=== PATIENT | female | born 1945 | race Two or more races ===

== ENCOUNTER 2020-08-30 14:40 | Outpatient (REF) | payer MEDICARE, SELFPAY ==
--- NOTE | 2020-08-30 | US_ITS ---
EXAMINATION: US THYROID CLINICAL INFORMATION: Thyroid nodule. COMPARISON: Ultrasound soft tissue head/neck thyroid dated 09/11/2019 and 09/01/2018. TECHNIQUE: Linear transducer hicks-scale and color Doppler examination with attention to the region of the thyroid. FINDINGS: SIZE: Measurements of the thyroid lobes and nodules are given in sagittal, anteroposterior and transverse dimensions respectively. Right Thyroid Lobe: 3.5 x 1.1 x 1.1 cm, volume 2.2 mL. Previously 3.8 x 1.1 x 1.4 cm, volume 3.1 mL. Parenchyma: The gland echotexture is heterogeneous. Thyroid vascularity is normal. Left Thyroid Lobe: 3.8 x 0.7 x 1.2 cm, volume 1.7 mL. Previously 3.9 x 0.6 x 1.5 cm, volume 1.9 mL. Parenchyma: The gland echotexture is homogeneous. Thyroid vascularity is normal. Isthmus: 0.2 cm in maximum AP dimension. Previously 0.2 cm. RIGHT THYROID LOBE: No nodules. ISTHMUS: No nodules. LEFT THYROID LOBE: No nodules. NODES: No lymphadenopathy is seen in the tissue surrounding the thyroid gland. IMPRESSION: The thyroid gland is normal in size. No discrete nodule or mass is seen on the current examination. The previously described area likely reflects a subtle area of heterogeneity rather than a focal nodule.
[2020-08-30 16:35] LABS: Alanine Aminotransferase 24 U/L (0-31); Albumin Level 4.3 g/dL (3.5-5.0); Alkaline Phosphatase 82 U/L (39-117); Anion Gap 11 (12-20); Aspartate Amino Transferase 22 U/L (5-31); Bilirubin Total < 0.2 mg/dL (0.0-1.0); Blood Urea Nitrogen 32 mg/dL (9-16); Calcium 9.2 mg/dL (8.4-10.2); Carbon Dioxide 32 mmol/L (22-29); Chloride 103 mmol/L (96-108); Estimated Glomerular Filt Rate > 60; Glucose Random 100 mg/dL (60-115); Potassium 4.6 mmol/l (3.3-5.1); Sodium 141 mmol/L (135-145); Total Protein 6.6 g/dL (6.5-8.0)
[2020-09-02 22:22] LABS: Calcium (PTHI) 9.4 mg/dL (8.6-10.4); PTHI 55 pg/mL (14-64)
== END 2020-08-30 14:41 | disposition home or self-care (01) ==
LOC: HO.US 14:40
PROVIDERS: PCP Internal Medicine; Visit Provider Internal Medicine
DX: E04.1 Nontoxic single thyroid nodule (principal); M81.0 Age-related osteoporosis without current pathological fracture; E55.9 Vitamin D deficiency, unspecified
CPT/HCPCS: 76536; 80053; 82306; 83970; 84443

== ENCOUNTER → 2020-09-09 12:03 | Outpatient (BNVA) | payer MEDICARE, SELFPAY | PROVIDERS: PCP Internal Medicine; Referring Provider Internal Medicine; Visit Provider Internal Medicine | DX: M81.0 Age-related osteoporosis without current pathological fracture (principal); E04.1 Nontoxic single thyroid nodule; E55.9 Vitamin D deficiency, unspecified | CPT/HCPCS: 99214; Q3014 ==

== ENCOUNTER → 2020-12-09 10:45 | Outpatient (BNVA) | payer MEDICARE, SELFPAY | PROVIDERS: PCP Internal Medicine; Referring Provider Internal Medicine; Visit Provider Internal Medicine | DX: M81.0 Age-related osteoporosis without current pathological fracture (principal); E04.1 Nontoxic single thyroid nodule; E55.9 Vitamin D deficiency, unspecified | CPT/HCPCS: Q3014 ==

== ENCOUNTER → 2021-03-10 09:28 | Outpatient (BNVA) | payer MEDICARE, SELFPAY | PROVIDERS: PCP Internal Medicine; Visit Provider Internal Medicine | DX: Z13.89 Encounter for screening for other disorder (principal) | CPT/HCPCS: Q3014 ==

== ENCOUNTER → 2021-06-09 11:47 | Outpatient (BNVA) | payer MEDICARE, SELFPAY | PROVIDERS: PCP Internal Medicine; Visit Provider Internal Medicine | DX: E04.1 Nontoxic single thyroid nodule (principal) ==

== ENCOUNTER → 2021-07-02 09:42 | Outpatient (BNVA) | payer MEDICARE, SELFPAY | PROVIDERS: PCP Internal Medicine; Visit Provider Internal Medicine | DX: E04.1 Nontoxic single thyroid nodule (principal); M81.0 Age-related osteoporosis without current pathological fracture; E55.9 Vitamin D deficiency, unspecified | CPT/HCPCS: 99212 ==

== ENCOUNTER 2021-07-26 07:22 | Outpatient (REF) | payer MEDICARE, SELFPAY ==
[2021-07-26 08:46] LABS: Alanine Aminotransferase 18 U/L (0-31); Albumin Level 4.2 g/dL (3.5-5.0); Alkaline Phosphatase 78 U/L (39-117); Anion Gap 12 (12-20); Aspartate Amino Transferase 22 U/L (5-31); Bilirubin Total 0.2 mg/dL (0.0-1.0); Blood Urea Nitrogen 20 mg/dL (9-16); Calcium 9.6 mg/dL (8.4-10.2); Carbon Dioxide 29 mmol/L (22-29); Chloride 104 mmol/L (96-108); Estimated Glomerular Filt Rate > 60; Glucose Random 97 mg/dL (60-115); Phosphorus 3.8 mg/dL (2.7-4.5); Potassium 4.5 mmol/L (3.3-5.1); Sodium 140 mmol/L (135-145); Total Protein 6.3 g/dL (6.5-8.0)
[2021-07-26 08:50] LABS: Alanine Aminotransferase 18 U/L (0-31); Albumin Level 4.2 g/dL (3.5-5.0); Alkaline Phosphatase 78 U/L (39-117); Anion Gap 12 (12-20); Aspartate Amino Transferase 23 U/L (5-31); Bilirubin Total 0.2 mg/dL (0.0-1.0); Blood Urea Nitrogen 20 mg/dL (9-16); Calcium 9.7 mg/dL (8.4-10.2); Carbon Dioxide 29 mmol/L (22-29); Chloride 104 mmol/L (96-108); Cholesterol 213 mg/dL; Estimated Glomerular Filt Rate > 60; Glucose Fasting 99 mg/dL (60-99); HDL Cholesterol 51 mg/dL; LDL Cholesterol Calculated 144 mg/dl; Potassium 4.5 mmol/L (3.3-5.1); Sodium 140 mmol/L (135-145); Total Protein 6.4 g/dL (6.5-8.0); Triglycerides 90 mg/dL
[2021-07-26 09:10] LABS: Vitamin D 25-OH Total 49.4 ng/mL (>30)
[2021-07-26 09:12] LABS: Thyroid Stimulating Hormone 2.85 uIU/mL (0.32-4.0)
[2021-07-29 16:52] LABS: Calcium (PTHI) 9.6 mg/dL (8.6-10.4); PTHI 49 pg/mL (14-64)
[2021-07-30 15:11] LABS: N-Telopeptide 33 (see note); NTXCreaRU 102 mg/dL (20-275)
== END 2021-07-26 07:23 | disposition home or self-care (01) ==
LOC: HO.LAB 07:22
PROVIDERS: Absent Provider Internal Medicine; PCP Internal Medicine; Visit Provider Internal Medicine
DX: E06.3 Autoimmune thyroiditis (principal); E78.5 Hyperlipidemia, unspecified; E55.9 Vitamin D deficiency, unspecified; M81.0 Age-related osteoporosis without current pathological fracture
CPT/HCPCS: 36415; 80053; 80061; 82306; 82523; 83970; 84100; 84443

== ENCOUNTER → 2021-11-04 15:04 | Outpatient (BNVA) | payer MEDICARE, SELFPAY | PROVIDERS: PCP Internal Medicine; Visit Provider Surgery Vascular Surgery | DX: I83.11 Varicose veins of right lower extremity with inflammation (principal) | CPT/HCPCS: 99202 ==

== ENCOUNTER 2021-12-02 12:47 | Outpatient (REF) | payer MEDICARE, MEDICAID, SELFPAY ==
--- NOTE | ~2021-12-02 | US_ITS ---
EXAMINATION: US LOWER EXTREMITY VENOUS (REFLUX EXAM), BILATERAL CLINICAL INDICATION: This a 76-year-old female with varicose veins. Venous insufficiency. COMPARISON: None. TECHNIQUE: Color flow triplex imaging and compression Doppler was performed to evaluate both the deep and the superficial systems bilaterally. To evaluate the superficial system, the examination was performed in the upright position. Color-flow Doppler ultrasound and compression ultrasound were utilized. In addition, maneuvers were utilized to demonstrate reflux. FINDINGS: 1. DEEP VENOUS ULTRASOUND OF THE RIGHT LOWER EXTREMITY: Common Femoral Vein: Compressible, normal respiratory variation and augmented flow. Femoral vein: Compressible, normal color flow and augmentation. Popliteal Vein: Compressible, normal augmentation. Deep Reflux: There is no evidence of reflux in the deep system in either the common femoral vein or the popliteal vein. There is no evidence of a Cruz's cyst. 2. SUPERFICIAL ULTRASOUND WITH DOPPLER OF RIGHT LOWER EXTREMITY: GREAT SAPHENOUS VEIN: Saphenofemoral Junction: 0.5 cm. There is no reflux. Mid Thigh: 0.3 cm. There is no reflux. Above Knee: 0.3 cm. The reflux time is 2292 ms. Below Knee: 0.2 cm. There is no reflux. Mid Calf: 0.2 cm. There is no reflux. Ankle: 0.3 cm GSV REFLUX: There is no reflux at the saphenofemoral junction. There is isolated reflux above the knee. DUPLICATED GREAT SAPHENOUS VEIN: There is a 0.3 cm duplicated lateral great saphenous vein without reflux. SMALL SAPHENOUS VEIN: Proximal: 0.2 cm Distal: 0.2 cm SSV REFLUX: No evidence of reflux. VEIN OF GIACOMINI: None Imaged. 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 VARICOSITIES: There are 0.3 cm mid thigh varicosities without reflux. 3. DEEP VENOUS ULTRASOUND OF THE LEFT LOWER EXTREMITY: Common Femoral Vein: Compressible, normal respiratory variation and augmented flow. Femoral Vein: Compressible, normal color flow and augmentation. Popliteal Vein: Compressible, normal augmentation. Deep Reflux: There is no evidence of reflux in the deep system in either the common femoral vein or the popliteal vein. There is no evidence of a Cruz's cyst. 4. SUPERFICIAL ULTRASOUND WITH DOPPLER OF LEFT LOWER EXTREMITY: GREAT SAPHENOUS VEIN: Saphenofemoral Junction: 0.7 cm. There is no reflux. Mid Thigh: 0.3 cm. There is no reflux. Above Knee: 0.3 cm. There is no reflux. Below Knee: 0.2 cm. There is isolated reflux of 2007 or 4 ms. Mid Calf: 0.1 cm Ankle: 0.2 cm GSV REFLUX: There is a short focal area of reflux below the knee. There is no reflux at the saphenofemoral junction. DUPLICATED GREAT SAPHENOUS VEIN: There is a 0.3 cm duplicated lateral great saphenous vein without reflux. SMALL SAPHENOUS VEIN: Proximal: 0.3 cm Distal: 0.2 cm SSV REFLUX: No evidence of reflux. VEIN OF GIACOMINI: None Imaged. PERFORATORS: There are 0.3 cm calf perforators without reflux. VARICOSITIES: There are 0.3 cm proximal calf varicose veins without reflux. US/US venous duplex LE BI IMPRESSION: 1. There are bilateral patent great saphenous veins and small saphenous veins without evidence of reflux at the junctions. 2. There are bilateral varicose veins measuring 0.3 cm without reflux.
== END 2021-12-02 12:48 | disposition home or self-care (01) ==
LOC: HO.US 12:47
PROVIDERS: PCP Internal Medicine; Visit Provider Surgery Vascular Surgery
DX: I83.11 Varicose veins of right lower extremity with inflammation (principal)
CPT/HCPCS: 93970

== ENCOUNTER → 2021-12-04 13:22 | Outpatient (BNVA) | payer MEDICARE, MEDICAID, SELFPAY | PROVIDERS: PCP Internal Medicine; Visit Provider Surgery Vascular Surgery | DX: I83.11 Varicose veins of right lower extremity with inflammation (principal) | CPT/HCPCS: 99212 ==

== ENCOUNTER 2022-01-03 07:45 | Outpatient (REF) | payer MEDICARE, MEDICAID, SELFPAY ==
[2022-01-03 09:00] LABS: Alanine Aminotransferase 23 U/L (0-31); Albumin Level 4.4 g/dL (3.5-5.0); Alkaline Phosphatase 82 U/L (39-117); Anion Gap 10 (12-20); Aspartate Amino Transferase 22 U/L (5-31); Bilirubin Total 0.4 mg/dL (0.0-1.0); Blood Urea Nitrogen 25 mg/dL (9-16); Calcium 10.1 mg/dL (8.4-10.2); Carbon Dioxide 32 mmol/L (22-29); Chloride 103 mmol/L (96-108); Estimated Glomerular Filt Rate > 60; Glucose Random 101 mg/dL (60-115); Phosphorus 4.1 mg/dL (2.7-4.5); Potassium 4.5 mmol/L (3.3-5.1); Sodium 140 mmol/L (135-145)
[2022-01-03 09:38] LABS: Free T4 (Free Thyroxine) 0.74 ng/dL (0.71-1.85); Thyroid Stimulating Hormone 2.39 uIU/mL (0.32-4.0)
[2022-01-03 10:09] LABS: Vitamin D 25-OH Total 48.7 ng/mL (>30)
[2022-01-06 14:21] LABS: PTHI 51 pg/mL (14-64)
== END 2022-01-03 07:46 | disposition home or self-care (01) ==
LOC: HO.LAB 07:45
PROVIDERS: PCP Internal Medicine; Visit Provider Internal Medicine
DX: M81.0 Age-related osteoporosis without current pathological fracture (principal); E04.1 Nontoxic single thyroid nodule; E55.9 Vitamin D deficiency, unspecified
CPT/HCPCS: 36415; 80053; 82306; 83970; 84100; 84439; 84443

== ENCOUNTER → 2022-01-07 09:19 | Outpatient (BNVA) | payer MEDICARE, MEDICAID, SELFPAY | PROVIDERS: PCP Internal Medicine; Visit Provider Internal Medicine | DX: M81.0 Age-related osteoporosis without current pathological fracture (principal); E04.1 Nontoxic single thyroid nodule; E55.9 Vitamin D deficiency, unspecified | CPT/HCPCS: 99212 ==

== ENCOUNTER 2022-01-27 08:32 | Outpatient (REF) | payer MEDICARE, MEDICAID, SELFPAY ==
--- NOTE | ~2022-01-27 | MM_ITS ---
EXAMINATION: BONE DENSITOMETRY CLINICAL INDICATION: Osteoporosis. COMPARISON: Previous BD dated 08/25/2019 and baseline BD dated 11/16/2008. TECHNIQUE: Using a Room [employer] Studio DXA System (software version: 13.1) manufactured by [employer], dual-energy x-ray absorptiometry was performed of the lumbar spine, left hip, and left forearm radius 33%. The images are of good technical quality. Summary results are attached. FINDINGS: AP SPINE L1-L4: Current: BMD 0.870 g/cm2, Z-score -1.0, T-score -2.6, osteoporosis, 0.0% change from previous, 4.4% decrease from baseline (<5% change is not significant). Prior: BMD 0.870 g/cm2. Baseline: BMD 0.910 g/cm2. LEFT FEMUR, NECK: Current: BMD 0.910 g/cm2, Z-score 1.0, T-score -0.9, normal. Prior: BMD 0.884 g/cm2. Baseline: BMD 0.971 g/cm2. LEFT FEMUR, TOTAL: Current: BMD 1.031 g/cm2, Z-score 1.9, T-score 0.2, normal, 0.9% increase from previous, 5.8% decrease from baseline (<5% change is not significant). Prior: BMD 1.022 g/cm2. Baseline: BMD 1.095 g/cm2. LEFT FOREARM RADIUS 33%: BMD 0.611 g/cm2, Z-score -0.6, T-score -3.0, osteoporosis. Prior: Not previously measured. IDENTIFIED RISK FACTORS: Menopause, osteoporosis. HISTORY OF FRACTURE: None listed. MEDICATIONS: Calcium or multivitamin. Vitamin D. MM/XR DEXA appendicular skeleton IMPRESSION: 1. DIAGNOSIS: Osteoporosis based on the lowest T-score value of -3.0 in the forearm radius 33% applying World Health Organization criteria. 2. 10-YEAR FRACTURE RISK PREDICTION, FRAX: According to the guidelines, FRAX calculation should only be performed on patients in the osteopenia bone density category. Therefore, FRAX was not performed on this patient. 3. Treatment Recommendations: NOF guidelines recommend consideration for treatment in postmenopausal women and men age 50 and older presenting with the following: -A hip or vertebral (clinical or morphometric) fracture. -T-score less than or equal to -2.5 at the femoral neck or spine after appropriate evaluation to exclude secondary causes. -Low bone mass at the hip or spine and a 10-year fracture probability by FRAX of greater than or equal to 3% for hip fracture or greater than or equal to 20% for major osteoporotic fracture based on the [place] adapted WHO algorithm. 4. Other Recommendations: All treatment decisions require clinical judgment and consideration of individual patient factors, including patient preferences, comorbidities, previous drug use, risk factors not captured in the FRAX model (e.g. frailty, falls, vitamin D deficiency, increased bone turnover, interval significant decline in bone density) and possible under or overestimation of fracture risk by FRAX. Additional medical evaluation for secondary cause of low bone mineral density may be appropriate. FUTURE SCAN RECOMMENDATION: People with diagnosed cases of osteoporosis or at high risk for fracture should have regular bone mineral density tests. For patients eligible for Medicare, routine testing is allowed once every 2 years. The testing frequency can be increased to one year for patients who have rapidly progressing disease, those who are receiving or discontinuing medical therapy to restore bone mass, or have additional risk factors.
[2022-01-27 11:08] LABS: Alanine Aminotransferase 21 U/L (0-31); Albumin Level 4.2 g/dL (3.5-5.0); Alkaline Phosphatase 78 U/L (39-117); Anion Gap 11 (12-20); Aspartate Amino Transferase 21 U/L (5-31); Bilirubin Total 0.2 mg/dL (0.0-1.0); Blood Urea Nitrogen 28 mg/dL (9-16); Calcium 9.9 mg/dL (8.4-10.2); Carbon Dioxide 30 mmol/L (22-29); Chloride 102 mmol/L (96-108); Cholesterol 224 mg/dL; Estimated Glomerular Filt Rate > 60; Glucose Random 106 mg/dL (60-115); HDL Cholesterol 54 mg/dL; LDL Cholesterol Calculated 152 mg/dl; Phosphorus 3.8 mg/dL (2.7-4.5); Potassium 4.8 mmol/L (3.3-5.1); Sodium 138 mmol/L (135-145); Total Protein 6.8 g/dL (6.5-8.0); Triglycerides 94 mg/dL
[2022-01-27 11:11] LABS: Vitamin D 25-OH Total 41.2 ng/mL (>30)
[2022-01-28 13:06] LABS: Prot Elec - Albumin 4.2 g/dL (3.8-4.8); Prot Elec - Alpha1 0.3 g/dL (0.2-0.3); Prot Elec - Alpha2 0.8 g/dL (0.5-0.9); Prot Elec - Beta 1 0.4 g/dL (0.4-0.6); Prot Elec - Beta 2 0.3 g/dL (0.2-0.5); Prot Elec - Gamma 0.7 g/dL (0.8-1.7); Prot Elec - Total Protein 6.7 g/dL (6.1-8.1)
[2022-01-29 07:16] LABS: Calcium (PTHI) 10.1 mg/dL (8.6-10.4); PTHI 36 pg/mL (16-77)
[2022-01-31 16:27] LABS: Vitamin D 25-OH, D2 <4 ng/mL; Vitamin D 25-OH, D3 37 ng/mL; Vitamin D 25-OH, Total 37 ng/mL (30-100)
== END 2022-01-27 08:33 | disposition home or self-care (01) ==
LOC: HO.LAB 08:32
PROVIDERS: PCP Internal Medicine; Visit Provider Internal Medicine
DX: M81.0 Age-related osteoporosis without current pathological fracture (principal); E78.5 Hyperlipidemia, unspecified; E55.9 Vitamin D deficiency, unspecified; E06.3 Autoimmune thyroiditis
CPT/HCPCS: 36415; 77081; 80053; 80061; 82306; 83970; 84100; 84165

== ENCOUNTER 2022-01-29 14:06 | Outpatient (REF) | payer MEDICARE, MEDICAID, SELFPAY ==
[2022-01-29 15:16] LABS: Creatinine, 24Hr Urine 0.6 G/Day (1.0-2.0); Total Volume 24 Hour Urine 1825 mL
[2022-02-01 18:21] LABS: Calcium, 24 Hr Urine 91 mg/24 h; Calcium/Creatinine Ratio 143 mg/g creat (30-275); Creatinine 24Hr Urine 0.64 g/24 h (0.50-2.15)
== END 2022-01-29 14:07 | disposition home or self-care (01) ==
LOC: HO.LNP 14:06
PROVIDERS: Visit Provider Internal Medicine
DX: M81.0 Age-related osteoporosis without current pathological fracture (principal)
CPT/HCPCS: 82340; 82570

== ENCOUNTER → 2022-03-18 10:00 | Outpatient (BNVA) | payer MEDICARE, MEDICAID, SELFPAY | PROVIDERS: PCP Internal Medicine; Visit Provider Internal Medicine | DX: M81.0 Age-related osteoporosis without current pathological fracture (principal); E04.1 Nontoxic single thyroid nodule; E55.9 Vitamin D deficiency, unspecified; Z79.899 Other long term (current) drug therapy | CPT/HCPCS: Q3014 ==

== ENCOUNTER → 2022-03-20 13:07 | Outpatient (REF) | payer MEDICARE, MEDICAID, SELFPAY ==
--- NOTE | 2022-03-20 13:18 | ECG_ITS ---
Hook-up date: 2022-03-20 12:24:00 Duration: 47:59:00 Test Indications: PALPITATIONS Medications: 160612 QRS complexes 13 Ventricular ectopics which represent <1 % of total QRS comp. 25 Supraventricular ectopics which represent <1 % of total QRS comp. * Paced QRS complexs which represent % of total QRS comp. VENTRICULAR ECTOPY 13 Isolated 0 Bigeminal Cycles 0 Couplets 0 Runs 0 Beats in Runs * Beats LONGEST at * BPM at :: -- * Beats FASTEST at * BPM at :: -- SUPRAVENTRICULAR ECTOPY 7 Isolated 0 Couplets 2 Runs 18 Beats in Runs 12 Beats LONGEST at 148 BPM at 01:21:17 2022-03-22 6 Beats FASTEST at 151 BPM at 16:22:51 2022-03-20 HEART RATES 67 MIN at 04:04:11 2022-03-21 79 AVG 105 MAX at 17:43:03 2022-03-21 LONGEST RR 1.0960 secs at 09:27:45 2022-03-22 S-T LEVELS Channel 1 - 128 mm at 12:24:00 2022-03-20 - 128 mm at 12:24:00 2022-03-20 Channel 2 - 128 mm at 12:24:00 2022-03-20 - 128 mm at 12:24:00 2022-03-20 Channel 3 - 128 mm at 03:14:31 -- - 128 mm at 03:14:31 Underlying rhythm is sinus; Average ventricular rate 79/min; range 67-105/min; Very rare supraventricular ectopy with few brief runs; Very rare ventricular ectopy; No sustained arrhythmias; Palpitations, short of breath mentioned in patient diary, but without timing; palpitations possibly from above ectopy. Referred By: Krys Oro Overread By: SHARONDA RAYO
== END ==
LOC: HO.CARD 13:07
PROVIDERS: PCP Internal Medicine; Visit Provider Internal Medicine
DX: R00.2 Palpitations (principal)
CPT/HCPCS: 93225; 93226

== ENCOUNTER → 2022-05-25 09:36 | Outpatient (BNVA) | payer MEDICARE, MEDICAID, SELFPAY | PROVIDERS: PCP Internal Medicine; Visit Provider Internal Medicine | DX: M81.0 Age-related osteoporosis without current pathological fracture (principal); E04.1 Nontoxic single thyroid nodule; E55.9 Vitamin D deficiency, unspecified | CPT/HCPCS: 99212 ==

== ENCOUNTER 2022-05-25 10:12 | Outpatient (REF) | payer MEDICARE, MEDICAID, SELFPAY ==
[2022-05-25 11:05] LABS: Alanine Aminotransferase 24 U/L (0-31); Albumin Level 4.3 g/dL (3.5-5.0); Alkaline Phosphatase 84 U/L (39-117); Anion Gap 10 (12-20); Aspartate Amino Transferase 21 U/L (5-31); Bilirubin Total 0.4 mg/dL (0.0-1.0); Blood Urea Nitrogen 29 mg/dL (9-16); Calcium 9.5 mg/dL (8.4-10.2); Carbon Dioxide 31 mmol/L (22-29); Chloride 102 mmol/L (96-108); Estimated Glomerular Filt Rate > 60; Glucose Random 99 mg/dL (60-115); Phosphorus 4.1 mg/dL (2.7-4.5); Potassium 4.6 mmol/L (3.3-5.1); Sodium 138 mmol/L (135-145); Total Protein 6.6 g/dL (6.5-8.0)
[2022-05-26 12:11] LABS: Calcium (PTHI) 9.9 mg/dL (8.6-10.4); PTHI 44 pg/mL (16-77)
== END 2022-05-25 10:13 | disposition home or self-care (01) ==
LOC: HO.10HDL 10:12
PROVIDERS: Visit Provider Internal Medicine
DX: M81.0 Age-related osteoporosis without current pathological fracture (principal); E55.9 Vitamin D deficiency, unspecified
CPT/HCPCS: 36415; 80053; 82306; 83970; 84100

== ENCOUNTER 2022-12-29 08:28 | Outpatient (REF) | payer OTHER, SELFPAY ==
[2022-12-29 10:28] LABS: Alanine Aminotransferase 21 U/L (0-31); Albumin Level 4.3 g/dL (3.5-5.0); Alkaline Phosphatase 83 U/L (39-117); Anion Gap 14 (12-20); Aspartate Amino Transferase 23 U/L (5-31); Bilirubin Total 0.3 mg/dL (0.0-1.0); Blood Urea Nitrogen 26 mg/dL (9-16); Calcium 9.6 mg/dL (8.4-10.2); Carbon Dioxide 28 mmol/L (22-29); Chloride 103 mmol/L (96-108); Cholesterol 230 mg/dL; Estimated Glomerular Filt Rate > 60; Glucose Fasting 103 mg/dL (60-99); HDL Cholesterol 54 mg/dL; LDL Cholesterol Calculated 159 mg/dl; Potassium 4.4 mmol/L (3.3-5.1); Sodium 141 mmol/L (135-145); Total Protein 6.5 g/dL (6.5-8.0); Triglycerides 88 mg/dL
[2022-12-29 10:46] LABS: Thyroid Stimulating Hormone 3.89 uIU/mL (0.32-4.0); Vitamin D 25-OH Total 37.1 ng/mL (>30)
== END 2022-12-29 08:29 | disposition home or self-care (01) ==
LOC: HO.LAB 08:28
PROVIDERS: PCP Internal Medicine; Visit Provider Internal Medicine
DX: Z00.00 Encounter for general adult medical examination without abnormal findings (principal); E06.3 Autoimmune thyroiditis; E55.9 Vitamin D deficiency, unspecified
CPT/HCPCS: 36415; 80053; 80061; 82306; 84443

== ENCOUNTER 2023-01-27 11:00 | Outpatient (REF) | payer OTHER, SELFPAY | END 2023-01-27 11:01 | disposition home or self-care (01) | LOC: HO.LNP 11:00 | PROVIDERS: PCP Internal Medicine; Visit Provider Surgery | DX: D17.22 Benign lipomatous neoplasm of skin and subcutaneous tissue of left arm (principal) | CPT/HCPCS: 11403; 88304; 99202 ==

== ENCOUNTER → 2023-02-03 12:50 | Outpatient (BNVA) | payer OTHER, SELFPAY | PROVIDERS: PCP Internal Medicine; Visit Provider Surgery | DX: Z09 Encounter for follow-up examination after completed treatment for conditions other than malignant neoplasm (principal); D17.22 Benign lipomatous neoplasm of skin and subcutaneous tissue of left arm | CPT/HCPCS: 99211 ==

== ENCOUNTER → 2023-02-22 10:28 | Outpatient (BNVA) | payer OTHER, SELFPAY | PROVIDERS: PCP Internal Medicine; Visit Provider Internal Medicine | DX: M81.0 Age-related osteoporosis without current pathological fracture (principal); E04.1 Nontoxic single thyroid nodule; E55.9 Vitamin D deficiency, unspecified | CPT/HCPCS: 99212 ==

== ENCOUNTER 2023-02-22 11:35 | Outpatient (REF) | payer OTHER, SELFPAY ==
[2023-02-22 14:13] LABS: Alanine Aminotransferase 25 U/L (0-31); Albumin Level 4.2 g/dL (3.5-5.0); Alkaline Phosphatase 75 U/L (39-117); Anion Gap 12 (12-20); Aspartate Amino Transferase 23 U/L (5-31); Bilirubin Total 0.3 mg/dL (0.0-1.0); Blood Urea Nitrogen 21 mg/dL (9-16); Calcium 9.5 mg/dL (8.4-10.2); Carbon Dioxide 31 mmol/L (22-29); Chloride 104 mmol/L (96-108); Estimated Glomerular Filt Rate > 60; Glucose Random 93 mg/dL (60-115); Phosphorus 3.6 mg/dL (2.7-4.5); Potassium 5.1 mmol/L (3.3-5.1); Sodium 142 mmol/L (135-145); Total Protein 6.4 g/dL (6.5-8.0)
[2023-02-22 14:29] LABS: Vitamin D 25-OH Total 44.8 ng/mL (>30)
[2023-02-24 13:49] LABS: Calcium (PTHI) 9.9 mg/dL (8.6-10.4); PTHI 60 pg/mL (16-77)
== END 2023-02-22 11:36 | disposition home or self-care (01) ==
LOC: HO.10HDL 11:35
PROVIDERS: Visit Provider Internal Medicine
DX: M81.0 Age-related osteoporosis without current pathological fracture (principal); E55.9 Vitamin D deficiency, unspecified
CPT/HCPCS: 36415; 80053; 82306; 83970; 84100

== ENCOUNTER 2023-02-24 11:18 | Outpatient (REF) | payer OTHER, SELFPAY ==
[2023-02-24 17:13] LABS: Total Volume 24 Hour Urine 2425 mL
[2023-02-24 17:38] LABS: Creatinine, 24Hr Urine 0.7 G/Day (1.0-2.0); Creatinine, mg/dL 30.22
[2023-02-26 19:54] LABS: Calcium, 24 Hr Urine 112 mg/24 h; Calcium/Creatinine Ratio 159 mg/g creat (30-275)
== END 2023-02-24 11:19 | disposition home or self-care (01) ==
LOC: HO.10HDLNP 11:18
PROVIDERS: Visit Provider Internal Medicine
DX: M81.0 Age-related osteoporosis without current pathological fracture (principal)
CPT/HCPCS: 82340; 82570

== ENCOUNTER 2023-06-14 08:27 | Outpatient (AMB) | payer OTHER, SELFPAY ==
--- NOTE | 2023-06-14 08:28 | MHC.OFFVIS ---
Intake Intake Visit Reasons: F/U Osteoporosis Allergies aspirin [ASPIRIN] Allergy (Intermediate, Verified 06/14/23 08:38) SWELLING, rash atenolol Allergy (Intermediate, Verified 06/14/23 08:38) dermatitis duloxetine Allergy (Intermediate, Verified 06/14/23 08:38) dermatitis sulindac Allergy (Intermediate, Verified 06/14/23 08:38) dermatitis tizanidine Allergy (Intermediate, Verified 06/14/23 08:38) dizziness trazodone Allergy (Unknown, Verified 06/14/23 08:38) dermatitis Statins Support Allergy (Intermediate, Uncoded 06/14/23 08:38) dermatitis Medication List - Last Reconciled 06/14/23 by Lynn Stinson, DO alprazolam 0.25 mg PO DAILY PRN 30 days calcium carbonate 600 mg PO DAILY 90 days cetirizine 10 mg PO DAILY 90 days cholecalciferol (vitamin D3) 20 mcg PO DAILY ezetimibe 10 mg PO DAILY 90 days flaxseed oil 1,000 mg PO DAILY fluocinolone acetonide oil 0.01% (DermOtic Oil) 5 drps otic (ears) BID 7 days magnesium oxide 500 mg PO DAILY Mapap Arthritis Pain ER (acetaminophen) 650 mg PO .every 6 hours PRN 30 days NS neomycin-polymyxin B-dexameth 3.5 mg/g-10,000 unit/g-0.1 % ophthalmic (eye) temazepam 30 mg PO BEDTIME PRN 30 days HPI HPI Comments History of Present Illness Details 78 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 First diagnosed in 2005. Received treatment in the past with Fosamax for just a matter of 4 months in 2018. She stopped this after she reports developing cramping and pain in her body. When this was reviewed in more detail today, she reports that she always has cramping and pain and that this was unchanged with or without the Fosamax. Labs ruled out any secondary cause of osteoporosis. She has consistently refused treatment for her Osteoporosis. Has 2-3 servings of dietary calcium per day in the form of milk, yogurt and cheese. Takes Calcium supplement 600 mg once a day. Takes 800 IU of Vitamin D daily. Denies ever using PPI, anticoagulant, antiepileptic or glucocorticoid medication. Does weight bearing exercise 6-7 days per week in the form of walking for 30 minutes at a time. 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 Menses was always regular. . She did not breastfeed. Menopause was age 45. She never used HRT. History of Kidney stones: Denies Family history of Osteoporosis in her Sister. Denies family history of hip fracture. Not UTD on dental cleanings. DXA: 01/27/2022 FINDINGS: AP SPINE L1-L4: Current: BMD 0.870 g/cm2, Z-score -1.0, T-score -2.6, osteoporosis, 0.0% change from previous, 4.4% decrease from baseline (<5% change is not significant). Prior: BMD 0.870 g/cm2. Baseline: BMD 0.910 g/cm2. LEFT FEMUR, NECK: Current: BMD 0.910 g/cm2, Z-score 1.0, T-score -0.9, normal. Prior: BMD 0.884 g/cm2. Baseline: BMD 0.971 g/cm2. LEFT FEMUR, TOTAL: Current: BMD 1.031 g/cm2, Z-score 1.9, T-score 0.2, normal, 0.9% increase from previous, 5.8% decrease from baseline (<5% change is not significant). Prior: BMD 1.022 g/cm2. Baseline: BMD 1.095 g/cm2. LEFT FOREARM RADIUS 33%: BMD 0.611 g/cm2, Z-score -0.6, T-score -3.0, osteoporosis. Prior:? Not previously measured. Labs: Laboratory Tests 02/22/23 02/22/23 02/24/23 11:41 11:41 06:00 Creatinine 0.78 Estimated GFR > 60 Albumin 4.2 25-OH Vitamin D To niall 44.8 PTH Intact 60 Calcium (PTH Intac t) 9.9 Ur 24 Hour Volume Ur Creatinine 24 H our 0.70 Ur Calcium 24 Hr 112 02/24/23 06:00 Creatinine Estimated GFR Albumin 25-OH Vitamin D To niall PTH Intact Calcium (PTH Intac t) Ur 24 Hour Volume 2425 Ur Creatinine 24 H our Ur Calcium 24 Hr PFS Medical History Anxiety Autoimmune thyroiditis Depression Dyslipidemia HLD (hyperlipidemia) HTN (hypertension) Insomnia Mild recurrent major depression Osteoporosis Palpitations PVD (peripheral vascular disease) Thyroid nodule Vitamin D deficiency Surgical History History of esophagogastroduodenoscopy (EGD) Hx of cataract surgery Hx of colonoscopy Hx of cornea transplant Family History Sister Osteoporosis Father No problems noted. Paternal Aunt Stroke Social History Housing: Apartment Alcohol intake: never Patient Tobacco Use Status: Never used Tobacco e-Cigarette/Vaping Use: Never Used Second Hand Smoke Exposure: No service: No Current occupational status: disabled Cognitive needs: Yes Hearing needs: No Vision needs: Yes Assessment & Plan Assessment & Plan (1) Osteoporosis: Code(s): M81.0 - Age-related osteoporosis without current pathological fracture Qualifiers: Osteoporosis type: unspecified Presence of current pathological fracture: unspecified Qualified Code(s): M81.0 - Age-related osteoporosis without current pathological fracture Plan: Patient with Osteoporosis of the Spine. Labs ruled out any secondary cause of Osteoporosis.. She is adamantly refusing all treatment for her osteoporosis today. She states that the Fosamax caused cramping, and she is not willing to attempt other antiresorptives given that the risk profile is similar to Fosamax. We did review that without treatment for her Osteoporosis her bones will continue to weaken and she can suffer a fracture. We reviewed a hip fracture can lead to significant morbidity and even . She verbalizes understanding but continues to refuse treatment at this time. We have reviewed fall prevention. Plan for now is for her to F/U with her PCP for further management. I did review with her that BMD should be repeated by her PCP every 2 years for surveillance. If in the future she does desire treatment for her Osteoporosis, we would be happy to see her back. All of her questions were answered. She is in agreement with this plan of care. I spent 20 minutes in reviewing the record, seeing the patient and documenting in the medical record, including 5 minutes on the phone with the Patient. (2) Thyroid nodule: Code(s): E04.1 - Nontoxic single thyroid nodule Plan: Patient with a documented thyroid nodule. Images of her thyroid US dated 09/11/19 were reviewed. She does have anais's disease given her positive TG antibodies, and a renetta appearing gland. What was measured as a nodule appears to not be a true thyroid nodule, but rather a pseudonodule. She had a repeat thyroid US completed 08/30/2020 which revealed no nodules. No need for repeat thyroid US at this time unless symptoms change. (3) Vitamin D deficiency: Code(s): E55.9 - Vitamin D deficiency, unspecified Plan: At goal. Telehealth Telehealth Location of provider rendering services: practice address Location of patient: address on file Patient Identification confirmed using: Name, : Yes Telehealth method: voice only Patient verbally consented to treatment: Yes Patient verbally consented to billing insurance company: Yes Patient informed of any privacy concerns related to visit: Yes Coding Level of Care Code Tele Est Pt Level 3 (67258) Diagnoses Osteoporosis M81.0 Osteoporosis type: unspecified Presence of current pathological fracture: unspecified Thyroid nodule E04.1 Vitamin D deficiency E55.9
== END 2023-06-14 08:50 | disposition home or self-care (01) ==
LOC: HO.ENCR 08:27
PROVIDERS: PCP Internal Medicine; Visit Provider Internal Medicine
DX: M81.0 Age-related osteoporosis without current pathological fracture (principal); E04.1 Nontoxic single thyroid nodule; E55.9 Vitamin D deficiency, unspecified
CPT/HCPCS: 99213

== ENCOUNTER → 2023-06-14 08:27 | Outpatient (BNVA) | payer OTHER, SELFPAY | PROVIDERS: PCP Internal Medicine; Visit Provider Internal Medicine | DX: M81.0 Age-related osteoporosis without current pathological fracture (principal); E04.1 Nontoxic single thyroid nodule; E06.3 Autoimmune thyroiditis; I10 Essential (primary) hypertension; E78.5 Hyperlipidemia, unspecified; E55.9 Vitamin D deficiency, unspecified | CPT/HCPCS: Q3014 ==

== ENCOUNTER 2023-06-17 15:22 | Outpatient (AMB) | payer OTHER, SELFPAY ==
--- NOTE | 2023-06-17 15:25 | A.OFFPC_ITS ---
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: No Accompanied by: Daughter Allergies aspirin [ASPIRIN] Allergy (Intermediate, Verified 06/17/23 15:43) SWELLING, rash atenolol Allergy (Intermediate, Verified 06/17/23 15:43) dermatitis duloxetine Allergy (Intermediate, Verified 06/17/23 15:43) dermatitis sulindac Allergy (Intermediate, Verified 06/17/23 15:43) dermatitis tizanidine Allergy (Intermediate, Verified 06/17/23 15:43) dizziness trazodone Allergy (Unknown, Verified 06/17/23 15:43) dermatitis Statins Support Allergy (Intermediate, Uncoded 06/17/23 15:43) dermatitis Medication List - Last Reconciled 06/17/23 by Krys Oro MD alprazolam 0.25 mg PO DAILY PRN 30 days calcium carbonate 600 mg PO DAILY 90 days cetirizine 10 mg PO DAILY 90 days cholecalciferol (vitamin D3) 20 mcg PO DAILY ezetimibe 10 mg PO DAILY 90 days flaxseed oil 1,000 mg PO DAILY fluocinolone acetonide oil 0.01% (DermOtic Oil) 5 drps otic (ears) BID 7 days magnesium oxide 500 mg PO DAILY Mapap Arthritis Pain ER (acetaminophen) 650 mg PO .every 6 hours PRN 30 days NS neomycin-polymyxin B-dexameth 3.5 mg/g-10,000 unit/g-0.1 % ophthalmic (eye) temazepam 30 mg PO BEDTIME PRN 30 days Tobacco use date assessed: 01/19/23 Fall risk assessment: No Falls in past year Last assessed Fall Risk: 06/17/23 Dental Screening Dental Screen Date: 06/17/23 Did you have a dental visit in the last 12 months?: Yes Did you have a dental problem in the last 6 months where you did not have access to dental care?: No Was dental information given to patient?: Patient has dentist HPI HPI Comments History of Present Illness Details This is a 78-year-old female with anxiety, dyslipidemia and osteoporosis that comes today accompanied by daughter complaining of a lump that she feels in her vagina for about a month or 2 and vaginal pruritus that has been present for about 4 months. She has use vagisil [id number] and vaginal pruritus improved but then come back 2 to 3 days later. She denies any weight loss, polyuria or polydipsia. I explained to her and her daughter that as part of differential diagnosis can be vaginal cancer as well as vaginal candidiasis or diabetes mellitus. Will order fluconazole and test for fasting blood glucose. Will be referred to OBGYN for vaginal pruritus and vaginal prolapse. Anxiety stable with benzodiazepines as needed. Lipid panel will be order. Has osteoporosis and endocrinology wanted to put her on Prolia but she declines due to her teeth needing work. Walks with a cane and is complaining of loss of balance favor in the right side. Denies any tinnitus. Will be referred for vestibular therapy. [facility] Medical History (Updated 06/17/23 @ 16:05 by Krys Oro MD) Anxiety Autoimmune thyroiditis Depression Dyslipidemia HLD (hyperlipidemia) HTN (hypertension) Insomnia Mild recurrent major depression Osteoporosis Palpitations PVD (peripheral vascular disease) Thyroid nodule Vitamin D deficiency Surgical History History of esophagogastroduodenoscopy (EGD) Hx of cataract surgery Hx of colonoscopy Hx of cornea transplant Family History Sister Osteoporosis Father No problems noted. Paternal Aunt Stroke Social History Housing: Apartment Alcohol intake: never Patient Tobacco Use Status: Never used Tobacco e-Cigarette/Vaping Use: Never Used Second Hand Smoke Exposure: No service: No Current occupational status: disabled Cognitive needs: Yes Hearing needs: No Vision needs: Yes Questionnaire Thrive Questionnaire Date Thrive assessed: 01/19/23 TARA-7 AMB Questionnaire TARA-7 Date TARA - 7 assessed: 01/19/23 Source: Developed by Drs. Sunny Handley, Daniella Burk, Buster Rajan and colleagues, with an educational sussy from [employer] Review of Systems Const All systems reviewed & are unremarkable except as noted in HPI and below Eyes Reports no additional complaints, Denies change in vision and Denies other v isual disturbances ENT Reports dizziness Card Denies chest pain at rest, Denies chest pain with activity, Denies edema, Denies irregular heart rhythm, Denies claudication, Denies dyspnea, Denies dyspnea on exertion, Denies orthopnea, Denies paroxysmal nocturnal dyspnea and Denies slow heart rate Resp Denies cough, Denies dyspnea and Denies dyspnea on exertion GI Denies abdominal pain, Denies change in bowel habits, Denies excessive flatus, Denies nausea and Denies vomiting Denies urinary incontinence, Denies urinary hesitancy and Denies urinary urgency Musc Denies abnormal gait, Denies atrophy, Denies deformity and Denies limited range of motion Skin/Breast Denies bleeding lesions, Denies changing lesions and Denies rash Neuro Denies abnormal gait, Reports dizziness and Denies lack of coordination Physical exam (Primary Care) Vital Signs: Last Vital Signs BP 126/68 06/17/23 15:26 BMI result Body Mass Index 31.2 Tobacco/Smoking Status: Tobacco use Status Tobacco use date assessed 01/19/23 06/17/23 15:34 Patient Tobacco Use Status Never used Tobacco 06/17/23 15:34 Tobacco use type 05/25/22 09:59 e-Cigarette/Vaping Use Never Used 06/17/23 15:34 Thrive Assessment: Date of Thrive Assessment Date Thrive assessed 01/19/23 06/17/23 15:34 Eyes General: appearance normal, both eyes and all related structures Eyelids: Yes eyelids normal Conjunctivae: conjunctivae normal Neck Neck: Yes normal visual inspection and Yes supple Resp Effort & Inspection: normal respiratory effort Auscultation: clear to auscultation bilaterally Cardio Jugular venous distension: no JVD Rate: regular rate Rhythm: regular rhythm Heart sounds: S1 normal heart sound present and S2 normal heart sound present Bimanual exam- vagina & uterus: other (vaginal prolapse) Extrem General: Yes full ROM Assessment and Plan Assessment & Plan (1) Loss of balance: Code(s): R26.89 - Other abnormalities of gait and mobility Plan: Referred to vestibular therapy. (2) Dyslipidemia: Code(s): E78.5 - Hyperlipidemia, unspecified Plan: Continue ezetimibe. Repeat lipid panel. (3) Anxiety: Code(s): F41.9 - Anxiety disorder, unspecified Plan: Continue benzodiazepines. (4) Osteoporosis: Code(s): M81.0 - Age-related osteoporosis without current pathological fracture Qualifiers: Osteoporosis type: unspecified Presence of current pathological fracture: unspecified Qualified Code(s): M81.0 - Age-related osteoporosis without current pathological fracture Plan: Consider Prolia. Orders: Orders [facility] [place]. 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
[2023-06-17 15:26] VITALS: BP 126/68; BMI 31.2
== END 2023-06-17 16:20 | disposition home or self-care (01) ==
PROVIDERS: PCP Internal Medicine; Visit Provider Internal Medicine
DX: R26.89 Other abnormalities of gait and mobility (principal); E78.5 Hyperlipidemia, unspecified; F41.9 Anxiety disorder, unspecified; M81.0 Age-related osteoporosis without current pathological fracture
CPT/HCPCS: 99214

== ENCOUNTER 2023-08-24 13:47 | Outpatient (AMB) | payer OTHER, SELFPAY ==
[2023-08-24 13:56] VITALS: BP 128/70; BMI 31.5
--- NOTE | 2023-08-24 13:56 | MHC.OFFVIS ---
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 Cytocele/PCP follow up Hourly Shift Required: Yes Hourly Shift Language: Agriscience Teacher Name: Candice Information Interpreted: non-clinical & clinical Handkerchief Presser: Handkerchief Presser Present (Candice) Allergies aspirin [ASPIRIN] Allergy (Intermediate, Verified 08/24/23 13:56) SWELLING, rash atenolol Allergy (Intermediate, Verified 08/24/23 13:56) dermatitis duloxetine Allergy (Intermediate, Verified 08/24/23 13:56) dermatitis sulindac Allergy (Intermediate, Verified 08/24/23 13:56) dermatitis tizanidine Allergy (Intermediate, Verified 08/24/23 13:56) dizziness trazodone Allergy (Unknown, Verified 08/24/23 13:56) dermatitis Statins Support Allergy (Intermediate, Uncoded 06/17/23 15:43) dermatitis HPI HPI Comments History of Present Illness Details Presenting complaining of a bulge per vagina with associated urinary frequency, leakage of urine upon coughing sneezing or lifting heavy objects PFSH Medical History Palpitations Mild recurrent major depression PVD (peripheral vascular disease) Insomnia Autoimmune thyroiditis Dyslipidemia Anxiety Vitamin D deficiency Thyroid nodule Osteoporosis Depression HTN (hypertension) HLD (hyperlipidemia) Surgical History History of esophagogastroduodenoscopy (EGD) Hx of cornea transplant Hx of colonoscopy Hx of cataract surgery Family History Sister Osteoporosis Father No problems noted. Paternal Aunt Stroke Social History Housing: Apartment Alcohol intake: never Patient Tobacco Use Status: Never used Tobacco e-Cigarette/Vaping Use: Never Used Second Hand Smoke Exposure: No service: No Current occupational status: disabled Cognitive needs: Yes Hearing needs: No Vision needs: Yes Female Reproductive History Menstrual Total pregnancies: 2 Full term: 2 Number of Living Children: 2 Review of Systems Const All systems reviewed & are unremarkable except as noted in HPI and below Physical Exam Vital Signs: Last Vital Signs BP 128/70 08/24/23 13:56 BMI result Body Mass Index 31.5 General: Yes no CVA tenderness External Female Exam: normal external appearance and normal appearance of the urethra Speculum Exam - Vagina: normal palpation, no lesions, no masses and other (Mild to moderate Cystocele central and right paravaginal defect) Speculum Exam - Cervix: normal appearance of the cervix, normal palpation, no lesions, no masses and nontender Bimanual exam- vagina & uterus: normal bimanual exam, normal palpation, uterine size normal, normal palpation, uterine shape normal, No Cervical tenderness present and non-tender Bimanual Exam- Adnexa, other: normal adnexae Back/Spine/Pelvis Back: no CVA tenderness Assessment & Plan Assessment & Plan (1) Female cystocele: Comment: Central and right paravaginal defect Code(s): N81.10 - Cystocele, unspecified Plan: Discussed with the patient the finding on pelvic exam showing central and right paravaginal defect [id number] cystocele, options of treatment were discussed with the patient including expectant management, pessary is or surgical treatment options. All pros and cons, risks and benefits of each were discussed with the patient, the patient decided to proceed with expectant management and will call back if she changes her mind. All questions answered, the patient verbalized understanding (2) Urine incontinence: Code(s): R32 - Unspecified urinary incontinence Plan: Urine dip done in the office was negative. Discussed with the patient the different types of Urine incontinence, stress urinary incontinence, intrinsic sphincter deficiency, overactive bladder and its work up. We will refer to uro gynecology, the patient would like to hold off the referral, think about it and get back to us. All questions answered, the patient verbalized understanding. Coding Level of Care Code New Pt Level 3 (70064) Diagnoses Female cystocele N81.10 Urine incontinence R32
== END 2023-08-24 14:45 | disposition home or self-care (01) ==
PROVIDERS: PCP Internal Medicine; Visit Provider Obstetrics & Gynecology
DX: N81.10 Cystocele, unspecified (principal); R32 Unspecified urinary incontinence
CPT/HCPCS: 99203

== ENCOUNTER → 2023-08-24 13:47 | Outpatient (BNVA) | payer OTHER, SELFPAY | PROVIDERS: PCP Internal Medicine; Visit Provider Obstetrics & Gynecology | DX: N81.10 Cystocele, unspecified (principal); R32 Unspecified urinary incontinence | CPT/HCPCS: 81002; 99202 ==

== ENCOUNTER 2023-12-16 16:14 | Outpatient (AMB) | payer OTHER, SELFPAY ==
[2023-12-16 16:21] VITALS: BP 126/70; BMI 31.4
--- NOTE | 2023-12-16 16:21 | A.OFFPC_ITS ---
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 Accompanied by: Self / Same As Patient Allergies aspirin [ASPIRIN] Allergy (Intermediate, Verified 12/16/23 16:35) SWELLING, rash atenolol Allergy (Intermediate, Verified 12/16/23 16:35) dermatitis duloxetine Allergy (Intermediate, Verified 12/16/23 16:35) dermatitis sulindac Allergy (Intermediate, Verified 12/16/23 16:35) dermatitis tizanidine Allergy (Intermediate, Verified 12/16/23 16:35) dizziness trazodone Allergy (Unknown, Verified 12/16/23 16:35) dermatitis Statins Support Allergy (Intermediate, Uncoded 12/16/23 16:35) dermatitis Medication List - Last Reconciled 12/16/23 by Krys Oro MD acetaminophen ER 650 mg PO .every 6 hours PRN 30 days NS alprazolam 0.25 mg PO DAILY PRN 30 days calcium carbonate 600 mg PO DAILY 90 days cetirizine 10 mg PO DAILY 90 days cholecalciferol (vitamin D3) 20 mcg PO DAILY ezetimibe 10 mg PO DAILY 90 days flaxseed oil 1,000 mg PO DAILY fluocinolone acetonide oil 0.01% (DermOtic Oil) 5 drps otic (ears) BID 7 days magnesium oxide 500 mg PO DAILY neomycin-polymyxin B-dexameth 3.5 mg/g-10,000 unit/g-0.1 % ophthalmic (eye) temazepam 30 mg PO BEDTIME PRN 30 days walker As directed Tobacco use date assessed: 12/16/23 Fall risk assessment: No Falls in past year Last assessed Fall Risk: 12/16/23 Dental Screening Dental Screen Date: 12/16/23 Did you have a dental visit in the last 12 months?: No Did you have a dental problem in the last 6 months where you did not have access to dental care?: No Was dental information given to patient?: Patient has dentist HPI HPI Comments History of Present Illness Details This is a 78-year-old female that comes for her physical exam. Last colonoscopy was 2012. No chest pain or shortness of breath. Last bone density was 2022 and this will be repeated. Declines mammogram. PENDING SALE TO [facility] Medical History (Updated 12/16/23 @ 17:13 by Krys Oro MD) Palpitations Mild recurrent major depression PVD (peripheral vascular disease) Insomnia Autoimmune thyroiditis Dyslipidemia Anxiety Vitamin D deficiency Thyroid nodule Osteoporosis Depression HTN (hypertension) HLD (hyperlipidemia) Surgical History History of esophagogastroduodenoscopy (EGD) Hx of cornea transplant Hx of colonoscopy Hx of cataract surgery Family History Sister Osteoporosis Father No problems noted. Paternal Aunt Stroke Mother No problems noted. Social History Housing: Apartment Alcohol intake: never Patient Tobacco Use Status: Never used Tobacco e-Cigarette/Vaping Use: Never Used Second Hand Smoke Exposure: No service: No Current occupational status: disabled Cognitive needs: Yes Hearing needs: No Vision needs: Yes Questionnaire PHQ-9 Over the last 2 weeks, how often have you been bothered by any of the following problems? 1. Little interest or pleasure in doing things: not at all 2. Feeling down, depressed, or hopeless: not at all 3. Trouble falling or staying asleep, or sleeping too much: several days 4. Feeling tired or having little energy: several days 5. Poor appetite or overeating: not at all 6. Feeling bad about yourself - or that you are a failure or have let yourself or your family down: not at all 7. Trouble concentrating on things, such as reading the newspaper or watching television: not at all 8. Moving or speaking so slowly that other people could have noticed. Or the opposite - being so fidgety or restless that you have been moving around a lot more than usual: not at all 9. Thoughts that you would be better off or of hurting yourself in some way: not at all Total score: 2 Depression Screening Interpretation: Negative Depression Screening Done: Yes 21355 - PHQ-9 Billing: Yes Source: Developed by Drs. Sunny Handley, Daniella Burk, Buster Rajan and colleagues, with an educational sussy from [employer]. Thrive Questionnaire Date Thrive assessed: 12/16/23 I am a: Patient What is your living situation today?: I have a steady place to live Within the past 12 months, did the food you bought not last and you didn't have the money to get more?: Never true Within the past 12 months, did you worry whether your food would run out before you got money to buy more?: Never true Do you have trouble paying for medicines?: No Do you have trouble getting transportation to medical appointments?: No Do you have trouble paying your heating and electricity bill?: No Do you have trouble taking care of your child, family member or friend?: No Do you have trouble with day-to-day activities such as bathing, preparing meals, shopping, managing finances, etc.?: No Are you currently unemployed and looking for a job?: No Are you interested in more education?: No Please select the resources that you would like help with: None Currently or been in a relationship where the following occur: no concerns reported THRIVE Score: 0 AUDIT C Alcohol Use Questionnaire (AUDIT-C) 1. How often do you have a drink containing alcohol?: Never Total Score: 0 Score Reviewed/Action Taken: No TARA-7 AMB Questionnaire TARA-7 Date TARA - 7 assessed: 12/16/23 Feeling nervous, anxious, or on edge: 1 = Several days Not being able to stop or control worryin = Not at all Worrying too much about different things: 1 = Several days Trouble relaxin = Not at all Being so restless that it is hard to sit still: 0 = Not at all Becoming easily annoyed or irritable: 0 = Not at all Feeling afraid as if something awful might happen: 0 = Not at all Total TARA-7 score (0-4 normal; 5-9 mild; 10-14 moderate; 15-21 severe): 2 Source: Developed by Drs. Sunny Handley, Daniella Burk, Buster Rajan and colleagues, with an educational sussy from [employer]. TARA-7 Assessment Billing TARA-7 Assessment Tool: TARA-7 Assessment 76263 Review of Systems Const All systems reviewed & are unremarkable except as noted in HPI and below Eyes Reports no additional complaints, Denies change in vision and Denies other visual disturbances Card Denies chest pain at rest, Denies chest pain with activity, Denies edema, Denies irregular heart rhythm, Denies claudication, Denies dyspnea, Denies dyspnea on exertion, Denies orthopnea, Denies paroxysmal nocturnal dyspnea and Denies slow heart rate Resp Denies cough, Denies dyspnea and Denies dyspnea on exertion GI Denies abdominal pain, Denies change in bowel habits, Denies excessive flatus, Denies nausea and Denies vomiting Denies urinary incontinence, Denies urinary hesitancy and Denies urinary urgency Musc Denies abnormal gait, Denies atrophy, Denies deformity and Denies limited range of motion Skin/Breast Denies bleeding lesions, Denies changing lesions and Denies rash Neuro Denies abnormal gait, Denies behavioral changes, Denies confusion and Denies lack of coordination Psych Denies behavioral changes and Denies confusion Physical exam (Primary Care) Vital Signs: Last Vital Signs BP 126/70 12/16/23 16:21 BMI result Body Mass Index 31.4 Tobacco/Smoking Status: Tobacco use Status Tobacco use date assessed 12/16/23 12/16/23 16:28 Patient Tobacco Use Status Never used Tobacco 12/16/23 16:28 Tobacco use type 05/25/22 09:59 e-Cigarette/Vaping Use Never Used 12/16/23 16:28 PHQ-9: PHQ-9 Score PHQ-9: Total score 2 12/16/23 16:56 Depression Screening Interpretation: Negative Thrive Assessment: Date of Thrive Assessment Date Thrive assessed 12/16/23 12/16/23 16:28 Currently or been in a relationship where the following occur: no concerns reported Const General: No confusion Orientation/consciousness: patient oriented x3 and No confusion HENNV Head: Yes normal to inspection, Yes normocephalic and Yes atraumatic Ears: external ears normal Eyes Other: right eye prothesis General: appearance normal, both eyes and all related structures Eyelids: Yes eyelids normal Conjunctivae: conjunctivae normal Neck Neck: Yes normal visual inspection and Yes supple Resp Effort & Inspection: normal respiratory effort Auscultation: clear to auscultation bilaterally Cardio Jugular venous distension: no JVD Rate: regular rate Rhythm: regular rhythm Heart sounds: S1 normal heart sound present and S2 normal heart sound present GI Inspection: Yes normal to inspection Palpation (GI): Soft to palpation and nontender Auscultation: normal bowel sounds Skin General skin exam: no rashes or lesions noted Neuro General: patient oriented x3, no focal motor deficits and No confusion Extrem General: Yes full ROM Psych Appearance: grossly normal Office Procedures Flu Questionnaire Does the patient have a severe egg allergy?: No Does the patient have severe life threatening allergies?: No Does the patient have a fever or illness today?: No Has the patient ever had Guillain-Lyons Syndrome?: No Has the patient ever had any past reaction to a flu shot?: No Immunizations flu vacc [id number] 6mos up(PF) 60 mcg(15 mcgx4)/0.5 mL IM syringe Performing Provider: Krys Oro MD [facility] Administered by: MICHELLE Ross on 12/16/23 16:56 Dose Route Admin Location Dispensed Lot Number Expiration Date NDC Business Performance Specialist 0.5 mL IM Left Deltoid 0.5 mL [id number] 05/14/24 49517-402-15 [employer] VIS Given Date VIS Provided VIS Publication Date 12/16/23 Single Vaccine 21 Eligibility Eligibility Date Funding Source Not VFC Eligible 12/16/23 Private Assessment and Plan Assessment & Plan (1) Physical exam: Code(s): Z00.00 - Encounter for general adult medical examination without abnormal findings Plan: Repeat in a year. Orders: Orders XR DEXA axial skeleton Today N95.9 - Unspecified menopausal and perimenopausal disorder Influenza [id number] Immunization Today Z23 - Encounter for immunization Lipid Panel Today E78.5 - Hyperlipidemia, unspecified Comprehensive Murphy. Panel Fast Today Z00.00 - Encounter for general adult medical examination without abnormal findings Vitamin D 25-OH Total Today E55.9 - Vitamin D deficiency, unspecified Thyroid Stimulating Hormone Today E06.3 - Autoimmune thyroiditis Medications: New carbamide peroxide 6.5% (Debrox) 5 drps otic (ears) Q12H 4 days 15 mL 0RF Changed From neomycin-polymyxin B-dexameth 3.5 mg/g-10,000 unit/g-0.1 % ophthalmic (eye) To neomycin-polymyxin B-dexameth 3.5 mg/g-10,000 unit/g-0.1 % 1 appl ophthalmic (eye) BEDTIME 2 weeks 3.5 grams 2RF Refilled fluocinolone acetonide oil 0.01% (DermOtic Oil) 5 drps otic (ears) BID 7 days 20 mL 2RF Coding Level of Care Code Est Pt Prev Care >65y(56610) Diagnoses Physical exam Z00.00 Additional Codes TARA-7 Assessment Billing - TARA-7 Assessment Tool: TARA-7 Assessment 38832 ([id number]) Time Spent (min) 32
== END 2023-12-16 16:56 | disposition home or self-care (01) ==
PROVIDERS: PCP Internal Medicine; Visit Provider Internal Medicine
DX: Z00.00 Encounter for general adult medical examination without abnormal findings (principal); Z23 Encounter for immunization
CPT/HCPCS: 90471; 90686; 99397

== ENCOUNTER 2024-02-01 09:26 | Outpatient (REF) | payer OTHER, SELFPAY ==
--- NOTE | ~2024-02-01 | MM_ITS ---
EXAMINATION: BONE DENSITOMETRY CLINICAL INDICATION: Unspecified menopausal and perimenopausal disorder. COMPARISON: Previous BD dated 01/27/2022 and baseline BD dated 11/16/2008. TECHNIQUE: Using a [employer] DXA System (software version: 13.1) manufactured by [employer], dual-energy x-ray absorptiometry was performed of the lumbar spine and left hip. The images are of good technical quality. Summary results are attached. FINDINGS: LEFT FEMUR, NECK: Current: BMD 0.930 g/cm2, Z-score 1.0, T-score -0.8, normal. Prior: BMD 0.910 g/cm2. Baseline: BMD 0.971 g/cm2. LEFT FEMUR, TOTAL: Current: BMD 1.042 g/cm2, Z-score 1.9, T-score 0.3, normal, 1.1% increase from previous, 4.8% decrease from baseline (<5% change is not significant). Prior: BMD 1.031 g/cm2. Baseline: BMD 1.095 g/cm2. AP SPINE L1-L4: Current: BMD 0.835 g/cm2, Z-score -1.5, T-score -2.9, osteoporosis, 4.0% decrease from previous, 8.2% decrease from baseline (<5% change is not significant). Prior: BMD 0.870 g/cm2. Baseline: BMD 0.910 g/cm2. IDENTIFIED RISK FACTORS: Menopause, osteoporosis, rheumatoid arthritis. HISTORY OF FRACTURE: None listed. MEDICATIONS: Calcium supplements or multivitamin, vitamin D. MM/XR DEXA axial skeleton IMPRESSION: 1. DIAGNOSIS: Osteoporosis based on the lowest T-score value of -2.9 in the lumbar spine applying World Health Organization criteria. 2. 10-YEAR FRACTURE RISK PREDICTION, FRAX: According to the guidelines, FRAX calculation should only be performed on patients in the osteopenia bone density category. Therefore, FRAX was not performed on this patient. 3. Treatment Recommendations: NOF guidelines recommend consideration for treatment in postmenopausal women and men age 50 and older presenting with the following: -A hip or vertebral (clinical or morphometric) fracture. -T-score less than or equal to -2.5 at the femoral neck or spine after appropriate evaluation to exclude secondary causes. -Low bone mass at the hip or spine and a 10-year fracture probability by FRAX of greater than or equal to 3% for hip fracture or greater than or equal to 20% for major osteoporotic fracture based on the [place] adapted WHO algorithm. 4. Other Recommendations: All treatment decisions require clinical judgment and consideration of individual patient factors, including patient preferences, comorbidities, previous drug use, risk factors not captured in the FRAX model (e.g. frailty, falls, vitamin D deficiency, increased bone turnover, interval significant decline in bone density) and possible under or overestimation of fracture risk by FRAX. Additional medical evaluation for secondary cause of low bone mineral density may be appropriate. FUTURE SCAN RECOMMENDATION: People with diagnosed cases of osteoporosis or at high risk for fracture should have regular bone mineral density tests. For patients eligible for Medicare, routine testing is allowed once every 2 years. The testing frequency can be increased to one year for patients who have rapidly progressing disease, those who are receiving or discontinuing medical therapy to restore bone mass, or have additional risk factors.
== END 2024-02-01 09:27 | disposition home or self-care (01) ==
LOC: HO.MAMMO 09:26
PROVIDERS: PCP Internal Medicine; Visit Provider Internal Medicine
DX: Z13.820 Encounter for screening for osteoporosis (principal); Z78.0 Asymptomatic menopausal state
CPT/HCPCS: 77080

== ENCOUNTER 2024-06-03 07:53 | Outpatient (REF) | payer OTHER, SELFPAY ==
[2024-06-03 09:41] LABS: Alanine Aminotransferase 22 U/L (0-31); Albumin Level 4.3 g/dL (3.5-5.0); Alkaline Phosphatase 72 U/L (39-117); Anion Gap 14 (12-20); Aspartate Amino Transferase 22 U/L (5-31); Bilirubin Total 0.4 mg/dL (0.0-1.0); Blood Urea Nitrogen 23 mg/dL (9-16); Calcium 9.7 mg/dL (8.4-10.2); Carbon Dioxide 28 mmol/L (22-29); Chloride 105 mmol/L (96-108); Cholesterol 173 mg/dL (<200); Estimated Glomerular Filt Rate > 60; Glucose Fasting 104 mg/dL (60-99); HDL Cholesterol 54 mg/dL (>40); LDL Cholesterol Calculated 105 mg/dL (<100); Potassium 4.5 mmol/L (3.3-5.1); Sodium 142 mmol/L (135-145); Total Protein 6.9 g/dL (6.5-8.0); Triglycerides 73 mg/dL (<150)
[2024-06-03 09:55] LABS: Thyroid Stimulating Hormone 2.06 uIU/mL (0.32-4.0); Vitamin D 25-OH Total 53.2 ng/mL (>30)
== END 2024-06-03 07:54 | disposition home or self-care (01) ==
LOC: HO.LAB 07:53
PROVIDERS: PCP Internal Medicine; Visit Provider Internal Medicine
DX: Z00.00 Encounter for general adult medical examination without abnormal findings (principal); E55.9 Vitamin D deficiency, unspecified; E06.3 Autoimmune thyroiditis; N89.8 Other specified noninflammatory disorders of vagina; E78.5 Hyperlipidemia, unspecified
CPT/HCPCS: 36415; 80053; 80061; 82306; 84443

== ENCOUNTER 2024-06-22 15:41 | Outpatient (AMB) | payer OTHER, SELFPAY ==
--- NOTE | 2024-06-22 15:44 | A.OFFPC_ITS ---
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 Accompanied by: Grand Child Allergies aspirin [ASPIRIN] Allergy (Intermediate, Verified 06/22/24 15:57) SWELLING, rash atenolol Allergy (Intermediate, Verified 06/22/24 15:57) dermatitis duloxetine Allergy (Intermediate, Verified 06/22/24 15:57) dermatitis sulindac Allergy (Intermediate, Verified 06/22/24 15:57) dermatitis tizanidine Allergy (Intermediate, Verified 06/22/24 15:57) dizziness trazodone Allergy (Unknown, Verified 06/22/24 15:57) dermatitis Statins Support Allergy (Intermediate, Uncoded 06/22/24 15:57) dermatitis alendronate Adverse Reaction (Severe, Uncoded 06/22/24 15:57) abdominal pain, palpitations Medication List - Last Reconciled 06/22/24 by Krys Oro MD acetaminophen ER 650 mg PO .every 6 hours PRN 30 days NS alprazolam 0.25 mg PO DAILY PRN 30 days calcium carbonate 600 mg PO DAILY 90 days carbamide peroxide 6.5% (Debrox) 5 drps otic (ears) DAILY cetirizine 10 mg PO DAILY 90 days cholecalciferol (vitamin D3) 20 mcg PO DAILY ezetimibe 10 mg PO DAILY 90 days flaxseed oil 1,000 mg PO DAILY magnesium oxide 500 mg PO DAILY temazepam 30 mg PO BEDTIME PRN 30 days walker As directed Tobacco use date assessed: 12/16/23 Fall risk assessment: No Falls in past year Last assessed Fall Risk: 06/22/24 Dental Screening Dental Screen Date: 12/16/23 HPI HPI Comments History of Present Illness Details This is a 79-year-old female with dyslipidemia, insomnia, anxiety and osteoporosis that comes today for follow-up on her conditions. Walks with a cane for gait stability. Cholesterol well controlled with Zetia. Insomnia stable with temazepam. Anxiety stable with alprazolam. She has osteoporosis for awhile and saw residential energy auditor in 2022 but did not follow-up with them because was undecided on the treatment. Had a DEXA scan this year showing osteoporosis and I will refer her to Rheumatology. No chest pain or shortness on breath. [facility] Medical History (Updated 06/22/24 @ 16:15 by Krys Oro MD) Palpitations Mild recurrent major depression PVD (peripheral vascular disease) Insomnia Autoimmune thyroiditis Dyslipidemia Anxiety Vitamin D deficiency Thyroid nodule Osteoporosis Depression HTN (hypertension) HLD (hyperlipidemia) Surgical History History of esophagogastroduodenoscopy (EGD) Hx of cornea transplant Hx of colonoscopy Hx of cataract surgery Family History Sister Osteoporosis Father No problems noted. Paternal Aunt Stroke Mother No problems noted. Social History Housing: Apartment Alcohol intake: never Patient Tobacco Use Status: Never used Tobacco e-Cigarette/Vaping Use: Never Used Second Hand Smoke Exposure: No service: No Current occupational status: disabled Cognitive needs: Yes Hearing needs: No Vision needs: Yes Questionnaire Thrive Questionnaire Date Thrive assessed: 12/16/23 TARA-7 AMB Questionnaire TARA-7 Date TARA - 7 assessed: 12/16/23 Source: Developed by Drs. Sunny Handley, Daniella Burk, Buster Rajan and colleagues, with an educational sussy from [employer]. Review of Systems Const All systems reviewed & are unremarkable except as noted in HPI and below Card Denies chest pain at rest, Denies chest pain with activity, Denies edema, Denies irregular heart rhythm, Denies claudication, Denies dyspnea, Denies dyspnea on exertion, Denies orthopnea, Denies paroxysmal nocturnal dyspnea and Denies slow heart rate Resp Denies cough, Denies dyspnea and Denies dyspnea on exertion GI Denies abdominal pain, Denies change in bowel habits, Denies excessive flatus, Denies nausea and Denies vomiting Denies urinary incontinence, Denies urinary hesitancy and Denies urinary urgency Musc Denies abnormal gait, Denies atrophy, Denies deformity and Denies limited range of motion Skin/Breast Denies bleeding lesions, Denies changing lesions and Denies rash Neuro Denies abnormal gait, Denies behavioral changes and Denies lack of coordination Psych Denies behavioral changes Physical exam (Primary Care) Vital Signs: Last Vital Signs BP 140/82 H 06/22/24 15:45 BMI result Body Mass Index 31.5 BMI Assessment/Plan discussion: High BMI High, discussed plan: lifestyle, weight reduction, dietary and physical activity Tobacco/Smoking Status: Tobacco use Status Tobacco use date assessed 12/16/23 06/22/24 15:51 Patient Tobacco Use Status Never used Tobacco 06/22/24 15:51 Tobacco use type 05/25/22 09:59 e-Cigarette/Vaping Use Never Used 06/22/24 15:51 Thrive Assessment: Date of Thrive Assessment Date Thrive assessed 12/16/23 06/22/24 15:51 Resp Effort & Inspection: normal respiratory effort Auscultation: clear to auscultation bilaterally Cardio Jugular venous distension: no JVD Rate: regular rate Rhythm: regular rhythm Heart sounds: S1 normal heart sound present and S2 normal heart sound present Extrem General: Yes full ROM Assessment and Plan Assessment & Plan (1) Age related osteoporosis: Code(s): M81.0 - Age-related osteoporosis without current pathological fracture Qualifiers: Presence of current pathological fracture: without current pathological fracture Qualified Code(s): M81.0 - Age-related osteoporosis without current pathological fracture Plan: Referred to rheumatology. (2) Dyslipidemia: Code(s): E78.5 - Hyperlipidemia, unspecified Plan: Continue Zetia. (3) Anxiety: Code(s): F41.9 - Anxiety disorder, unspecified Plan: Continue alprazolam as needed. (4) Insomnia: Code(s): G47.00 - Insomnia, unspecified Qualifiers: Insomnia type: primary Qualified Code(s): F51.01 - Primary insomnia Plan: Continue temazepam as needed. Orders: Referrals Rheumatology Referral M81.0 - Age-related osteoporosis without current pathological fracture Coding Level of Care Code Est Pt Level 4 (66795) Complex EM visit Add On G2211 Diagnoses Age-related osteoporosis without current pathological fracture M81.0 Presence of current pathological fracture: without current pathological fracture Dyslipidemia E78.5 Anxiety F41.9 Primary insomnia F51.01 Insomnia type: primary Time Spent (min) 20
[2024-06-22 15:45] VITALS: BP 140/82; BMI 31.5
[2024-06-22 15:57] VITALS: BP 138/82
== END 2024-06-22 16:08 | disposition home or self-care (01) ==
PROVIDERS: PCP Internal Medicine; Visit Provider Internal Medicine
DX: M81.0 Age-related osteoporosis without current pathological fracture (principal); E78.5 Hyperlipidemia, unspecified; F41.9 Anxiety disorder, unspecified; F51.01 Primary insomnia
CPT/HCPCS: 99214; G2211

== ENCOUNTER 2024-09-14 08:31 | Outpatient (AMB) | payer OTHER, SELFPAY ==
--- NOTE | 2024-09-14 08:36 | A.OFFVIS_ITS ---
Vital Signs 09/14/24 08:37 Height 5 ft 3 in Weight 179 lb 3.773 oz BMI 31.7 BP 128/70 Blood Pressure Location Lt brachial Position Sitting Pulse 80 Pulse Source Pulse Oximeter Pulse Oximetry (%) 96 Oxygen Delivery Method Room Air Intake Visit Reasons: Osteoporosis/cm Intake Note: Presents today for Osteoporosis She [place] [facility] [place] [facility]Dr Jagdish, Krys Robin, she complains of pain in both legs and arms for years. She is using Tylenol for pain. Accompanied by: Child Allergies aspirin [ASPIRIN] Allergy (Intermediate, Verified 09/14/24 08:40) SWELLING, rash atenolol Allergy (Intermediate, Verified 09/14/24 08:40) dermatitis duloxetine Allergy (Intermediate, Verified 09/14/24 08:40) dermatitis sulindac Allergy (Intermediate, Verified 09/14/24 08:40) dermatitis tizanidine Allergy (Intermediate, Verified 09/14/24 08:40) dizziness trazodone Allergy (Unknown, Verified 09/14/24 08:40) dermatitis Statins Support Allergy (Intermediate, Uncoded 09/14/24 08:40) dermatitis alendronate Adverse Reaction (Severe, Uncoded 09/14/24 08:40) abdominal pain, palpitations Medication List - Last Reconciled 09/14/24 by Nova Snider MD acetaminophen ER 650 mg PO .every 6 hours PRN 30 days NS alprazolam 0.25 mg PO DAILY PRN 30 days calcium carbonate 600 mg PO DAILY 90 days carbamide peroxide 6.5% (Debrox) 5 drps otic (ears) DAILY cetirizine 10 mg PO DAILY 90 days cholecalciferol (vitamin D3) 20 mcg PO DAILY ezetimibe 10 mg PO DAILY 90 days flaxseed oil 1,000 mg PO DAILY magnesium oxide 500 mg PO DAILY temazepam 30 mg PO BEDTIME PRN 30 days walker As directed HPI Comments Details: This is a 79-year-old female who presents for evaluation of osteoporosis. Patient was evaluated by endocrinology last year for osteoporosis. Per endocrinology secondary causes of osteoporosis were ruled out. Patient was prescribed Fosamax. She took 1 or 2 doses. She could not tolerate it due to significant GI upset. She discontinued it she is not can play on any osteoporosis medication. She takes vitamin-D regularly. She has poor balance. Has not had a fall recently. She denies history of fractures [facility] Medical History Palpitations Mild recurrent major depression PVD (peripheral vascular disease) Insomnia Autoimmune thyroiditis Dyslipidemia Anxiety Vitamin D deficiency Thyroid nodule Osteoporosis Depression HTN (hypertension) HLD (hyperlipidemia) Surgical History History of esophagogastroduodenoscopy (EGD) Hx of cornea transplant Hx of colonoscopy Hx of cataract surgery Family History Sister Osteoporosis Father No problems noted. Paternal Aunt Stroke Mother No problems noted. Social History Housing: Apartment Alcohol intake: never Patient Tobacco Use Status: Never used Tobacco e-Cigarette/Vaping Use: Never Used Second Hand Smoke Exposure: No service: No Current occupational status: disabled Cognitive needs: Yes Hearing needs: No Vision needs: Yes Female Reproductive History Menstrual Total pregnancies: 2 Full term: 2 Number of Living Children: 2 Review of Systems Const Denies frequent falls Musc Reports back pain and Reports arthralgias Neuro Details: Poor balance Denies frequent falls Physical Exam Vital Signs: Last Vital Signs Pulse 80 09/14/24 08:37 BP 128/70 09/14/24 08:37 Pulse Ox 96 09/14/24 08:37 Oxygen Delivery Method Room Air 09/14/24 08:37 BMI result Body Mass Index 31.7 Const General: cooperative, healthy appearing and comfortable Nutritional Appearance: obese Orientation/consciousness: patient oriented x3 Limitations: ambulation with cane HEENT Head: Yes normocephalic and Yes atraumatic Mouth: moist mucous membranes Resp Effort & Inspection: normal respiratory effort and able to speak in complete sentences Skin General skin exam: no rashes or lesions noted Neuro General: patient oriented x3 Extrem Other: Minimal osteoarthritic changes of both hands with no active synovitis Results Reviewed Results Reviewed: Ordering Physician: Krys Watkins MD Results: Date of Service: 02/01/24 Follow Up: Procedure(s): XR DEXA axial skeleton Accession Number(s): [id number] cc: Krys Watkins MD~ EXAMINATION: BONE DENSITOMETRY CLINICAL INDICATION: Unspecified menopausal and perimenopausal disorder. COMPARISON: Previous BD dated 01/27/2022 and baseline BD dated 11/16/2008. TECHNIQUE: Using a [employer] DXA System (software version: 13.1) manufactured by [employer], dual-energy x-ray absorptiometry was performed of the lumbar spine and left hip. The images are of good technical quality. Summary results are attached. FINDINGS: LEFT FEMUR, NECK: Current: BMD 0.930 g/cm2, Z-score 1.0, T-score -0.8, normal. Prior: BMD 0.910 g/cm2. Baseline: BMD 0.971 g/cm2. LEFT FEMUR, TOTAL: Current: BMD 1.042 g/cm2, Z-score 1.9, T-score 0.3, normal, 1.1% increase from previous, 4.8% decrease from baseline (<5% change is not significant). Prior: BMD 1.031 g/cm2. Baseline: BMD 1.095 g/cm2. AP SPINE L1-L4: Current: BMD 0.835 g/cm2, Z-score -1.5, T-score -2.9, osteoporosis, 4.0% decrease from previous, 8.2% decrease from baseline (<5% change is not significant). Prior: BMD 0.870 g/cm2. Baseline: BMD 0.910 g/cm2. IDENTIFIED RISK FACTORS: Menopause, osteoporosis, rheumatoid arthritis. HISTORY OF FRACTURE: None listed. MEDICATIONS: Calcium supplements or multivitamin, vitamin D. MM/XR DEXA axial skeleton IMPRESSION: 1. DIAGNOSIS: Osteoporosis based on the lowest T-score value of -2.9 in the lumbar spine applying World Health Organization criteria. Assessment & Plan Assessment & Plan (1) Age related osteoporosis: Code(s): M81.0 - Age-related osteoporosis without current pathological fracture Category: Medical Qualifiers: Presence of current pathological fracture: without current pathological fracture Qualified Code(s): M81.0 - Age-related osteoporosis without current pathological fracture Plan: This is a 79-year-old female with osteoporosis who presents for follow-up. She was evaluated by endocrinology last year. 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 Patient took 1 or 2 doses of alendronate and could not tolerate it due to significant GI upset. Her repeat DEXA scan shows worsening osteoporosis. I had a long discussion with patient and her son today regarding the risks of osteoporosis and risk of fractures. Especially hip fractures which can be detrimental. Discussed different treatment options. Discussed the risks and benefits of Reclast versus Prolia. Patient elected to proceed with Reclast. I will start prior authorization for Reclast . Vitamin-D level at goal. Continue current vitamin-D supplementation Follow-up in 6 months Plan I spent 46 minutes reviewing patient's chart, evaluating patient, placing orders,, counseling patient and documenting in the chart Coding Level of Care Code New Pt Level 4 (57868) Diagnoses Age-related osteoporosis without current pathological fracture M81.0 Presence of current pathological fracture: without current pathological fracture
[2024-09-14 08:37] VITALS: BP 128/70; PULSE 80; O2SAT 96; BMI 31.7
== END 2024-09-14 09:15 | disposition home or self-care (01) ==
PROVIDERS: PCP Internal Medicine; Visit Provider Student in an Organized Health Care Education/Training Program
DX: M81.0 Age-related osteoporosis without current pathological fracture (principal)
CPT/HCPCS: 99204

== ENCOUNTER → 2024-09-14 08:31 | Outpatient (BNVA) | payer OTHER, SELFPAY | PROVIDERS: PCP Internal Medicine; Visit Provider Student in an Organized Health Care Education/Training Program | DX: M81.0 Age-related osteoporosis without current pathological fracture (principal) | CPT/HCPCS: 99202 ==

== ENCOUNTER 2024-09-16 07:22 | Outpatient (REF) | payer OTHER, SELFPAY ==
[2024-09-16 08:30] LABS: Anion Gap 12 (12-20); Blood Urea Nitrogen 24 mg/dL (9-16); Calcium 9.6 mg/dL (8.4-10.2); Carbon Dioxide 29 mmol/L (22-29); Chloride 105 mmol/L (96-108); Estimated Glomerular Filt Rate > 60; Glucose Random 103 mg/dL (60-115); Potassium 4.1 mmol/L (3.3-5.1); Sodium 142 mmol/L (135-145)
== END 2024-09-16 07:23 | disposition home or self-care (01) ==
LOC: HO.LAB 07:22
PROVIDERS: PCP Internal Medicine; Visit Provider Student in an Organized Health Care Education/Training Program
DX: M81.0 Age-related osteoporosis without current pathological fracture (principal)
CPT/HCPCS: 36415; 80048

== ENCOUNTER 2024-09-29 12:41 | Outpatient (RCR) | payer OTHER, SELFPAY ==
[2024-09-29 12:46] VITALS: BP 146/70; PULSE 85; RESP 16; TEMP 36.8; O2SAT 95
[2024-09-29] MEDS: Zoledronic Acid/Mannitol-Water 5 MG/100 ML PGGYBK.BTL IV (12:57)
== END 2024-09-29 13:21 | disposition home or self-care (01) ==
LOC: HO.INF 12:41
PROVIDERS: PCP Internal Medicine; Visit Provider Student in an Organized Health Care Education/Training Program
DX: M81.0 Age-related osteoporosis without current pathological fracture (principal)
CPT/HCPCS: 96374; J3489

== ENCOUNTER 2024-11-30 15:26 | Outpatient (AMB) | payer OTHER, SELFPAY ==
--- NOTE | 2024-11-30 15:30 | MHC.PC.OV ---
Vital Signs 11/30/24 15:31 Height 5 ft 3 in Weight 180 lb BMI 31.9 BP 132/80 Blood Pressure Location Lt brachial Position Sitting Intake Visit Reasons: bp, anxiety Intake Note: Patient here for a follow up BP, Anxiety Airline Reservation Agent Required: Yes Airline Reservation Agent Language: Director [facility] Name: Krys Oro MD Information Interpreted: non-clinical & clinical Accompanied by: Self / Same As Patient Allergies aspirin [ASPIRIN] Allergy (Intermediate, Verified 11/30/24 15:45) SWELLING, rash atenolol Allergy (Intermediate, Verified 11/30/24 15:45) dermatitis duloxetine Allergy (Intermediate, Verified 11/30/24 15:45) dermatitis sulindac Allergy (Intermediate, Verified 11/30/24 15:45) dermatitis tizanidine Allergy (Intermediate, Verified 11/30/24 15:45) dizziness trazodone Allergy (Unknown, Verified 11/30/24 15:45) dermatitis Statins Support Allergy (Intermediate, Uncoded 11/30/24 15:45) dermatitis alendronate Adverse Reaction (Severe, Uncoded 11/30/24 15:45) abdominal pain, palpitations Medication List - Last Reconciled 11/30/24 by Krys Oro MD acetaminophen ER 650 mg PO .every 6 hours PRN 30 days NS alprazolam 0.25 mg PO DAILY PRN 30 days calcium carbonate 600 mg PO DAILY 90 days carbamide peroxide 6.5% (Debrox) 5 drps otic (ears) DAILY cetirizine 10 mg PO DAILY 90 days cholecalciferol (vitamin D3) 20 mcg PO DAILY ezetimibe 10 mg PO DAILY 90 days flaxseed oil 1,000 mg PO DAILY magnesium oxide 500 mg PO DAILY temazepam 30 mg PO BEDTIME PRN 30 days walker As directed Tobacco use date assessed: 11/30/24 Fall risk assessment: No Falls in past year Last assessed Fall Risk: 11/30/24 Dental Screening Dental Screen Date: 11/30/24 Did you have a dental visit in the last 12 months?: Yes Did you have a dental problem in the last 6 months where you did not have access to dental care?: No Was dental information given to patient?: Patient has dentist HPI HPI Comments History of Present Illness Details The patient is a 79-year-old female presenting with congestion and chest tightness following a recent upper respiratory infection. She developed a fever and significant symptoms of a cold about 10 days ago and has been managing her symptoms with Tylenol and sterling tea. The patient's current primary concerns are persistent nasal congestion and chest tightness, for which she has requested symptomatic relief. She denies any chest pain or shortness of breath. The patient has a history of controlled hyperlipidemia and autoimmune thyroiditis; however, her TSH levels have remained within normal limits, and she does not currently require medication for thyroid management. Her anxiety and depression are described as mild and manageable, although she adheres to a regimen of alprazolam as needed for anxiety and temazepam to aid sleep. [facility] Medical History (Updated 12/01/24 @ 08:04 by Krys Oro MD) Mild recurrent major depression Palpitations PVD (peripheral vascular disease) Insomnia Autoimmune thyroiditis Dyslipidemia Anxiety Vitamin D deficiency Thyroid nodule Osteoporosis Depression HTN (hypertension) HLD (hyperlipidemia) Surgical History History of esophagogastroduodenoscopy (EGD) Hx of cornea transplant Hx of colonoscopy Hx of cataract surgery Family History Sister Osteoporosis Father No problems noted. Paternal Aunt Stroke Mother No problems noted. Social History Housing: Apartment Alcohol intake: never Patient Tobacco Use Status: Never used Tobacco e-Cigarette/Vaping Use: Never Used Second Hand Smoke Exposure: No service: No Current occupational status: disabled Cognitive needs: Yes Hearing needs: No Vision needs: Yes Questionnaire PHQ-9 Over the last 2 weeks, how often have you been bothered by any of the following problems? 1. Little interest or pleasure in doing things: not at all 2. Feeling down, depressed, or hopeless: not at all 3. Trouble falling or staying asleep, or sleeping too much: several days 4. Feeling tired or having little energy: several days 5. Poor appetite or overeating: not at all 6. Feeling bad about yourself - or that you are a failure or have let yourself or your family down: not at all 7. Trouble concentrating on things, such as reading the newspaper or watching television: not at all 8. Moving or speaking so slowly that other people could have noticed. Or the opposite - being so fidgety or restless that you have been moving around a lot more than usual: not at all 9. Thoughts that you would be better off or of hurting yourself in some way: not at all Total score: 2 Depression Screening Interpretation: Negative Depression Screening Done: Yes 99188 - PHQ-9 Billing: Yes Source: Developed by Drs. Sunny Handley, Daniella Burk, Buster Rajan and colleagues, with an educational sussy from [employer]. Thrive Questionnaire Date Thrive assessed: 11/30/24 I am a: Patient What is your living situation today?: I have a steady place to live Within the past 12 months, did the food you bought not last and you didn't have the money to get more?: Never true Within the past 12 months, did you worry whether your food would run out before you got money to buy more?: Never true Do you have trouble paying for medicines?: No Do you have trouble getting transportation to medical appointments?: No Do you have trouble paying your heating and electricity bill?: No Do you have trouble taking care of your child, family member or friend?: No Do you have trouble with day-to-day activities such as bathing, preparing meals, shopping, managing finances, etc.?: No Are you currently unemployed and looking for a job?: No Are you interested in more education?: No Please select the resources that you would like help with: None Currently or been in a relationship where the following occur: No concerns reported THRIVE Score: 0 AUDIT C Alcohol Use Questionnaire (AUDIT-C) 1. How often do you have a drink containing alcohol?: Never Total Score: 0 Score Reviewed/Action Taken: No TARA-7 AMB Questionnaire TARA-7 Date TARA - 7 assessed: 11/30/24 Feeling nervous, anxious, or on edge: 1 = Several days Not being able to stop or control worryin = Not at all Worrying too much about different things: 1 = Several days Trouble relaxin = Not at all Being so restless that it is hard to sit still: 0 = Not at all Becoming easily annoyed or irritable: 0 = Not at all Feeling afraid as if something awful might happen: 0 = Not at all Total TARA-7 score (0-4 normal; 5-9 mild; 10-14 moderate; 15-21 severe): 2 Source: Developed by Drs. Sunny Handley, Daniella Burk, Buster Rajan and colleagues, with an educational sussy from [employer]. TARA-7 Assessment Billing TARA-7 Assessment Tool: TARA-7 Assessment 15343 Review of Systems Const All systems reviewed & are unremarkable except as noted in HPI and below Card Denies chest pain at rest, Denies chest pain with activity, Denies edema, Denies irregular heart rhythm, Denies claudication, Denies dyspnea, Denies dyspnea on exertion, Denies orthopnea, Denies paroxysmal nocturnal dyspnea and Denies slow heart rate Resp Denies cough, Denies dyspnea and Denies dyspnea on exertion Physical exam (Primary Care) Vital Signs: Last Vital Signs BP 132/80 11/30/24 15:31 BMI result Body Mass Index 31.9 Tobacco/Smoking Status: Tobacco use Status Tobacco use date assessed 11/30/24 11/30/24 15:37 Patient Tobacco Use Status Never used Tobacco 11/30/24 15:37 Tobacco use type 05/25/22 09:59 e-Cigarette/Vaping Use Never Used 11/30/24 15:37 PHQ-9: PHQ-9 Score PHQ-9: Total score 2 11/30/24 16:03 Depression Screening Interpretation: Negative Thrive Assessment: Date of Thrive Assessment Date Thrive assessed 11/30/24 11/30/24 15:37 Currently or been in a relationship where the following occur: No concerns reported Resp Effort & Inspection: normal respiratory effort Auscultation: clear to auscultation bilaterally Cardio Jugular venous distension: no JVD Rate: regular rate Rhythm: regular rhythm Heart sounds: S1 normal heart sound present and S2 normal heart sound present Extrem General: Yes full ROM Office Procedures Flu Questionnaire Does the patient have a severe egg allergy?: No Immunizations Fluarix Triv [id number] (PF) 45 mcg (15 mcg x 3)/0.5 mL IM syringe Performing Provider: Krys Oro MD [facility] Documented (not given) by: MICHELLE Ross on 11/30/24 16:03 Reason Not Given: Patient Refused Coding Level of Care Code Est Pt Level 4 (57059) Complex EM visit Add On G2211 Diagnoses Primary insomnia F51.01 Insomnia type: primary Autoimmune thyroiditis E06.3 Dyslipidemia E78.5 Anxiety F41.9 Mild recurrent major depression F33.0 Additional Codes TARA-7 Assessment Billing - TARA-7 Assessment Tool: TARA-7 Assessment 97990 ([id number]) PHQ-9 - 54951 - PHQ-9 Billing: Yes ([id number]) Time Spent (min) 22 Assessment & Plan Assessment & Plan (1) Insomnia: Code(s): G47.00 - Insomnia, unspecified Category: Medical Qualifiers: Insomnia type: primary Qualified Code(s): F51.01 - Primary insomnia (2) Autoimmune thyroiditis: Code(s): E06.3 - Autoimmune thyroiditis Category: Medical (3) Dyslipidemia: Code(s): E78.5 - Hyperlipidemia, unspecified Category: Medical (4) Anxiety: Code(s): F41.9 - Anxiety disorder, unspecified Category: Medical (5) Mild recurrent major depression: Code(s): F33.0 - Major depressive disorder, recurrent, mild Category: Medical Plan - Prescribe Mucinex for five days to aid in clearing chest congestion. - Monitor autoimmune thyroiditis with periodic checking of TSH levels. - Continue management of hyperlipidemia with lifestyle and dietary measures, as previous lipid profiles were well-controlled. - Encourage patient to continue current regimen for anxiety and depression as symptoms are mild. - No antibiotics necessary given resolution of symptoms. Patient was informed and verbally consented to the use of an ambient scribe for clinic note documentation during this visit. I discussed with the patient that her recent upper respiratory infection appears to be resolving, evidenced by the reduction of initial symptoms. We reviewed the absence of any need for antibiotics due to the improvement in her condition. I explained the recommended use of Mucinex to facilitate the clearance of chest congestion. We also addressed her autoimmune thyroiditis and confirmed that no medication is required at present due to normal TSH levels. Additionally, I reiterated lifestyle modifications to maintain controlled cholesterol levels and encouraged the continuation of medications for anxiety and depression as prescribed. Follow-up lab work will include assessing cholesterol, blood glucose, renal and liver function, and thyroid levels. Orders: Orders Thyroid Stimulating Hormone 4 Months E06.3 - Autoimmune thyroiditis Lipid Panel 4 Months E78.5 - Hyperlipidemia, unspecified Influenza [id number] Immunization 11/30/24 Z23 - Encounter for immunization Comprehensive [place]. Panel Fast 4 Months M81.0 - Age-related osteoporosis without current pathological fracture Vitamin D 25-OH Total 4 Months E55.9 - Vitamin D deficiency, unspecified Medications: New guaifenesin ER (Mucinex) 600 mg PO BID 10 tabs 0RF 5 days Patient Instructions: - Take Mucinex as prescribed for five days for chest congestion. - Maintain current management for anxiety and depression. - Continue with lifestyle modifications to keep cholesterol in check. - Use Tylenol as needed for fever or discomfort. - Attend follow-up appointments for routine lab work and thyroid monitoring. - Contact healthcare provider if symptoms worsen or new symptoms arise.
[2024-11-30 15:31] VITALS: BP 132/80; BMI 31.9
== END 2024-11-30 15:54 | disposition home or self-care (01) ==
PROVIDERS: PCP Internal Medicine; Visit Provider Internal Medicine
DX: Z23 Encounter for immunization (principal)

== ENCOUNTER → 2024-11-30 15:26 | Outpatient (BNVA) | payer OTHER, SELFPAY | PROVIDERS: PCP Internal Medicine; Visit Provider Internal Medicine | DX: F51.01 Primary insomnia (principal); E06.3 Autoimmune thyroiditis; E78.5 Hyperlipidemia, unspecified; F41.9 Anxiety disorder, unspecified; F33.0 Major depressive disorder, recurrent, mild | CPT/HCPCS: 90471; 96127; 99212 ==

== ENCOUNTER 2025-03-09 09:33 | Outpatient (REF) | payer OTHER, SELFPAY ==
--- NOTE | ~2025-03-09 | XR_ITS ---
EXAMINATION: X-ray lumbar spine 4 views. CLINICAL INFORMATION: Dorsalgia, unspecified. TECHNIQUE: AP oblique and lateral views. COMPARISON: November 30, 2015. FINDINGS: Multilevel marginal osteophyte formation and endplate sclerosis decreased intervertebral disc height throughout the axial skeleton. No acute cortical disruption or gross malalignment. No lytic or blastic lesions. Numerous punctate calcifications overlapping the liver shadow and questionable lower lung lobes. Vascular calcifications. XR/XR lumbar spine 4V min IMPRESSION: Multilevel thoracolumbar spondylosis. Probable prior granulomatous disease processes. Atherosclerosis disease, aorta. Electronically signed by: Kobe Pearce MD 03/12/2025 03:27 PM EDT
--- NOTE | ~2025-03-09 | XR_ITS ---
EXAMINATION: XR SACROILIAC JOINTS CLINICAL INFORMATION: M54.9 - Dorsalgia, unspecified COMPARISON: None available. TECHNIQUE: 3 views of the sacroiliac joints FINDINGS: No acute cortical disruption. No lytic or blastic lesions. XR/XR sacroiliac joint min 3V IMPRESSION: No acute fracture, sacroiliac joints. Electronically signed by: Kobe Pearce MD 03/12/2025 03:24 PM EDT
--- NOTE | ~2025-03-09 | XR_ITS ---
EXAMINATION: XR THORACIC SPINE CLINICAL INFORMATION: M54.9 - Dorsalgia, unspecified COMPARISON: March 02, 2016. TECHNIQUE: 3 views of the thoracic spine were obtained. FINDINGS: Multilevel marginal osteophyte formation and endplate sclerosis and decreased intervertebral disc height and volume loss of the mid to lower thoracic spine vertebral bodies. No acute cortical disruption or malalignment. No lytic or blastic lesions. Punctate calcifications in the liver shadow and likely the lungs. Vascular calcifications, aorta.. XR/XR thoracic spine 3V IMPRESSION: Multilevel thoracolumbar spondylosis. Probable prior granulomatous disease process. Atherosclerosis disease. Electronically signed by: Kobe Pearce MD 03/12/2025 03:29 PM EDT
--- OUTSIDE RECORDS SUMMARY | 2025-03-09 11:29 | XMS_ITS | Referral Summary ---
Author Organization [facility] Address [address] [place] [address] Care Team Providers Care Dry Paste Supervisor Name Role Phone Krys Watkins Primary Care Provider [phone] Allergies Active Allergy Reactions Criticality Noted Date [...] of Treatment [place] [address] [facility] [place] [id number] Care Teams Dry Paste Supervisor Relationship Specialty Start Date End Date Krys Watkins [address] [place] [address] dr Jagdish Dubon, [place] [phone] PCP - General 06/03/17
--- OUTSIDE RECORDS SUMMARY | 2025-03-09 11:29 | XMS_ITS ---
Author Name Kiera Chase APRN Address [address] [place] [address] Phone [phone] [facility] Care Team Providers Care Water Attendant Name Role Phone Kaitlin Chase Unavailable [phone] MICHELLE SAM Unavailable [phone] Reason for Referral Not Available Allergies, adverse reactions, alerts Allergen Type Reaction Severity Status Onset Date Atenolol Allergy to substance (disorder) Itching Unknown Active N/A Aspirin Allergy to substance (disorder) Itching Unknown Active N/A History of medication use Medication Class Instructions Start Date End Date Dbkczvwy-Xuutdxoyb-Vkpvzysm 3.5-77013-5.1 Oint No Data Available 2022-04-08 2022-09-30 ALPRAZolam [...] (do not use for phone, instead use 07761-16) [facility]/20[place] Major depressive disorder, recurrent, mildAnxiety disorder, unspecifiedMorbid (severe) obesity due to excess caloriesInsomnia due to other mental disorderBody mass index (bmi) 31.0-31.9, adult New patient,40-59min; chronic exacerbation, 2 stable chronic or 1 acute illness add add modifier 95 for video (do not use for phone, instead use 31231-14) [facility] 09/[place]/20[place] New patient,40-59min; chronic exacerbation, 2 stable chronic or 1 acute illness add add modifier 95 for video (do not use for phone, instead use 63711-74) [facility] 09/[place]/20[place] New patient,40-59min; chronic exacerbation, 2 stable chronic or 1 acute illness add add modifier 95 for video (do not use for phone, instead use 79520-49) [facility] 09/[place]/20[place] New patient,40-59min; chronic exacerbation, 2 stable chronic or 1 acute illness add add modifier 95 for video (do not use for phone, instead use 70829-72) [facility] 09/30/2022 New patient,40-59min; chronic exacerbation, 2 stable chronic or 1 acute illness add add modifier 95 for video (do not use for phone, instead use 05244-90) [facility] ([place] 09/30/20[place] New patient,40-59min; chronic exacerbation, 2 stable chronic or 1 acute illness add add modifier 95 for video (do not use for phone, instead use 54687-38) [facility]20[place] New patient,40-59min; chronic exacerbation, 2 stable chronic or 1 acute illness add add modifier 95 for video (do not use for phone, instead use 63984-72) [facility] 09[place]20[place] New patient,40-59min; chronic exacerbation, 2 stable chronic or 1 acute illness add add modifier 95 for video (do not use for phone, instead use 73386-76) [facility]20[place] No Data Available [facility]2023 Peripheral vascular disease, unspecifiedMajor depressive disorder, recurrent, mildAnxiety disorder, unspecifiedInsomnia due to other mental disorderObesity, unspecifiedBody mass index (bmi) 32.0-32.9, adult No Data Available [facility] 06[place]02[place]2023 No Data Available [facility]20[place] No Data Available [facility]2023 No Data Available [facility]02[place]2023 No Data Available [facility]20[place] No Data Available [facility] No Data Available [facility]2023 No Data Available [facility]2023 No Data Available [facility]2023 No Data Available [facility]2023 Vital Signs Date of Collection Vitals 2022-09-30 10:18:08 Height - 157.48 cmWe ight - 78.47 kgBody Mass Index (BMI) - 31.64 kg/m2BP Diastolic - 70.0 mm[Hg]BP Systolic - 122.0 mm[Hg]Body Temperature - 36.5 [place]acia 2023-06-02 13:14:02 Height - 157.48 cmWe ight [...] (do not use for phone, instead use 24203-82) [id number] 2022-09-30 No Data Available No Data Availa [...] Available No Data Available No Data Available [id number] 2023-06-02 No Data Available No Data Available [...] [place] you have a Durable Power of Vp Treasurer for Healthcare, or Healthcare Proxy Or Guardianship? [...]
--- OUTSIDE RECORDS SUMMARY | 2025-03-09 11:29 | XMS_ITS | Clinical Summary ---
Author Organization [facility] Address [address] [place] [address] Care Team Providers Care Bank Worker Name Role Phone Krys Watkins Primary Care Provider [phone] Allergies Active Allergy Reactions Criticality Noted Date [...] complete this topic Insurance [address] [place] [id number] [facility] MCR Member Subscriber Plan / Payer (Ef fective 2022-Present) Name:Yasmine Mcdermott Relation to Subscriber:Self Name:Yasmine Mcdermott Payer ID:[id number] (NAIC) Group ID:[id number] Type:Not on file Address: [address] [place] [address] Care Teams Bank Worker Relationship Specialty Start Date End Date Krys Watkins [address] [facility] [address] Jagdish Dubon, [place] [phone] PCP - General 06/03/17
== END 2025-03-09 09:34 | disposition home or self-care (01) ==
LOC: HO.XRAY 09:33
PROVIDERS: PCP Internal Medicine; Visit Provider Student in an Organized Health Care Education/Training Program
DX: M54.9 Dorsalgia, unspecified (principal); M81.0 Age-related osteoporosis without current pathological fracture; M54.50 Low back pain, unspecified; E55.9 Vitamin D deficiency, unspecified; G89.29 Other chronic pain; Z79.83 Long term (current) use of bisphosphonates
CPT/HCPCS: 72072; 72110; 72202; 99212

== ENCOUNTER 2025-03-09 09:33 | Outpatient (AMB) | payer OTHER, SELFPAY ==
--- OUTSIDE RECORDS SUMMARY | 2025-03-09 09:46 | XMS_ITS ---
Author Name Kiera Chase APRN Address [address] [place] [address] Phone [phone] [facility] Care Team Providers Care Senior Research Project Manager Name Role Phone Kaitlin Chase Unavailable [phone] MICHELLE SAM Unavailable [phone] Reason for Referral Not Available Allergies, adverse reactions, alerts Allergen Type Reaction Severity Status Onset Date Atenolol Allergy to substance (disorder) Itching Unknown Active N/A Aspirin Allergy to substance (disorder) Itching Unknown Active N/A History of medication use Medication Class Instructions Start Date End Date Nljkfozg-Auzqauvcy-Dsboykid [id number] Oint No Data Available 2022-04-08 2022-09-30 ALPRAZolam 0.25 mg Tab TAKE 1 TABLET BY MOUTH DAILY NEEDED FOR ANXIETY 2022-04-14 2022-09-30 Temazepam 30 mg Cap TAKE 1 CAPSULE BY MO UTH AT BEDTIME NEEDED FOR SLEEP 2022-04-14 2022-09-30 Mapap Arthritis Pain 650 mg Tab ER TAKE 1 TABLET BY MOUTH EVERY 6 HOURS NEEDED FOR FEVER OR PAIN 2022-05-12 No Data Available Cetirizine 10 mg Tab TAKE 1 TABLET BY MO UTH EVERY DAY 2022-06-15 No Data Available Tylenol 325 mg Tab 2 tabs every 8 hours as needed 2022-09-30 No Data Available Temazepam 30 mg Cap 1 capsule orally edilberto ly at bedtime 2022-09-30 No Data Available ALPRAZolam 0.25 mg Tab 1 tablet orally d aily PRN for anxiety 2022-09-30 No Data Available Calcium Carbonate 600 mg Tab 1 tablet BID 2022-09-30 No Data Available Vitamin D3 25 MCG (1000 UT) Cap 1 capsules orally daily 2022-09-30 No Data Availabl e Ezetimibe 10 mg Tab TAKE 1 TABLET BY MOUTH DAILY 2023- 03-07 No Data Available CALCIUM 600MG HI-POTENCY TABS G/S TAKE 1 TABLET BY MOUTH DAILY FOR 90 DAYS 2023-04-13 No Data Available ARTH PAIN REL(ACETAMINOPHEN)650MG T TAKE 1 TABLET BY MOUTH EVERY 6 HOURS NEEDED FOR FEVER OR PAIN 2023-03-15 No Data Available Problem List Problem Status Onset Date Resolved Date Insomnia Active 2023-06-02 N/A Peripheral vascular disease, unspecified Active 2023-06-02 N/A obesity due to excess calories Active 2022-09-30 N/A Recurrent mild major depressive disorder with anxiety Active 2022-09-30 N/A Encounters Encounters Type Facility Date of Service Diagnosis/Co mplaint New patient,40-59min; chronic exacerbation, 2 stable chronic or 1 acute illness add add modifier 95 for video (do not use for phone, instead use 32800-21) [facility], ([place]) [place]30/[place]22 Major depressive disorder, recurrent, mildAnxiety disorder, unspecifiedMorbid (severe) obesity due to excess caloriesInsomnia due to other mental disorderBody mass index (bmi) 31.0-31.9, adult New patient,40-59min; chronic exacerbation, 2 stable chronic or 1 acute illness add add modifier 95 for video (do not use for phone, instead use 69561-30) [facility] New patient,40-59min; chronic exacerbation, 2 stable chronic or 1 acute illness add add modifier 95 for video (do not use for phone, instead use 33940-57) [facility] New patient,40-59min; chronic exacerbation, 2 stable chronic or 1 acute illness add add modifier 95 for video (do not use for phone, instead use 05602-60) [facility] New patient,40-59min; chronic exacerbation, 2 stable chronic or 1 acute illness add add modifier 95 for video (do not use for phone, instead use 63856-60) [facility] New patient,40-59min; chronic exacerbation, 2 stable chronic or 1 acute illness add add modifier 95 for video (do not use for phone, instead use 42962-29) [facility] ([place]) 09[place] New patient,40-59min; chronic exacerbation, 2 stable chronic or 1 acute illness add add modifier 95 for video (do not use for phone, instead use 88339-80) [facility] ([place] New patient,40-59min; chronic exacerbation, 2 stable chronic or 1 acute illness add add modifier 95 for video (do not use for phone, instead use 77068-22) [facility] New patient,40-59min; chronic exacerbation, 2 stable chronic or 1 acute illness add add modifier 95 for video (do not use for phone, instead use 70595-12) [facility] No Data Available [facility] Peripheral vascular disease, unspecifiedMajor depressive disorder, recurrent, mildAnxiety disorder, unspecifiedInsomnia due to other mental disorderObesity, unspecifiedBody mass index (bmi) 32.0-32.9, adult No Data Available [facility] No Data Available [facility] No Data Available [facility] No Data Available [facility] No Data Available [facility] No Data Available [facility] No Data Available [facility] No Data Available [facility] No Data Available [facility] No Data Available [facility]23 Vital Signs Date of Collection Vitals 2022-09-30 10:18:08 Height - 157.48 cmWe ight - 78.47 kgBody Mass Index (BMI) - 31.64 kg/m2BP Diastolic - 70.0 mm[Hg]BP Systolic - 122.0 mm[Hg]Body Temperature - 36.5 Adcia 2023-06-02 13:14:02 Height - 157.48 cmWe ight - 79.38 kgBody Mass Index (BMI) - 32.01 kg/m2BP Diastolic - 59.0 mm[Hg]BP Systolic - 141.0 mm[Hg]Heart Rate - 80.0 /minPain Scale - 0.0 {score} Social History Social History Social History Observation Description Effec tive Time Current Smoking Status Never smoker 2025-02-14 5 Sex Female History of Procedures Procedures Service Procedure code Service date Servicing provider Phone# New patient,40-59min; chronic exacerbation, 2 stable chronic or 1 acute illness add add modifier 95 for video (do not use for phone, instead use [id number]) 04697 2022-09-30 No Data Available No Data Availa ble Pain Assessment - NO pain present (1126F) 1126F 2022-09-30 No Data Available No Data A vailable Medication List Documented (1159F) 1159F 2022-09-30 No Data Available No Data Dianna ilable Medication Review by prescribing provider or pharmacist documented (1160F) 1160F 2022-09-30 No Data Available No Data Dianna ilable Functional Status Assessed (1170F) 1170F 2022-09-30 No Data Available No Data Avail able Advance Care Directive Advance care planning discussion documented in the medical record (1158F) 1158F 2022-09-30 No Data Available No Data Availa ble BMI obtained (3008F) 3008F 2022-09-30 No Data Availab le No Data Available SBP < 130 (3074F) 3074F 2022-09-30 No Data Available No Data Available DBP <80 (3078F) 3078F 2022-09-30 No Data Available No Data Available No Data Available 08540 2023-06-02 No Data Available No Data Available Advance care planning discussed and documented ? advance care plan or surrogate decision-maker was documented in the medical record. (1123F) 1123F 2023-06-02 No Data Available No Data Availa ble Pain Assessment - NO pain present (1126F) 1126F 2023-06-02 No Data Available No Data A vailable Functional Status Assessed (1170F) 1170F 2023-06-02 No Data Available No Data Avail able Medication List Documented (1159F) 1159F 2023-06-02 No Data Available No Data Dianna ilable Medication Review by prescribing provider or pharmacist documented (1160F) 1160F 2023-06-02 No Data Available No Data Dianna ilable BMI obtained (3008F) 3008F 2023-06-02 No Data Availab le No Data Available Advance Care Directive Advance care planning discussion documented in the medical record (1158F) 1158F 2023-06-02 No Data Available No Data Availa ble No Data Available G8431 2023-06-02 No Data Available No Data Available SBP >= 140 3077F 2023-06-02 No Data Available No Data Available DBP <80 (3078F) 3078F 2023-06-02 No Data Available No Data Available Functional Status Functional Category Effective Dates Cognition Status: Oriented t o Person, Place and Time? ? ,Recall 3/3 unrelated words at 3 minutes 2022-09-30 IADL: Medication Needs Mark tance , Meal Prep Needs Assistance , Shopping Needs Assistance , Driving or Public Transport Needs Assistance , Housework Needs Assistance and Finances Needs Assistance 2022-09-30 ADL: Bathing Needs Assistanc e , Dressing Independent , Eating Independent , Ambulation Independent , Transferring Independent and Toileting Independent 2022-09-30 Falls in last 6 Months: No 2022-09-30 Social Supports - # of Inter actions with Friends/Family in a typical week: nurse assists daily 2022-09-30 Mental Status Status Date Cognition Status: Oriented t o Person, Place and Time,Recall 3/3 unrelated words at 3 minutes 2022-09-30 Assessments Date of Service Assessments 2022-09-30 10:18:08 Recurrent mild major depressive disorder with anxietyMorbid (severe) obesity due to excess calories 2023-06-02 13:14:02 Recurrent mild major depressive disorder with anxietyobesity due to excess caloriesInsomniaPeripheral vascular disease, unspecified Plan of Care Date of Service Plans 2022-09-30 10:18:08 Pain Assessment - Pa in Documented (1125F)Medication Review by prescribing provider or pharmacist documented (1160F)Medication List Documented (1159F)Functional Status Assessed (1170F)Advance Care Directive Advance care planning discussion documented in the medical record (1158F)BMI obtained (3008F)SBP < 130 (3074F)DBP <80 (3078F)Televideo new patient,40-59min; chronic exacerbation, 2 stable chronic or 1 acute illness add modifier 95Continue to see PCP. Follow-up with [facility] as needed for any acute or disease education needs that may arise.PHQ-9 score: 8. TARA-7 score: 12Managed with alprazolam and temazepam. Continue medications as directed. Maintain safety and fall precautions. Encourage relaxation and reassurance techniques. Follow up with PCP as indicated.Discussed diet and weight management. Increase physical activities as tolerated. Maintain safety and fall precautions. Heart healthy diet encouraged. Follow up with PCP as indicated. 2023-06-02 13:14:02 Medication Review by prescribing provider or pharmacist documented (1160F)Medication List Documented (1159F)Functional Status Assessed (1170F)Advance Care Directive Advance care planning discussion documented in the medical record (1158F)BMI obtained (3008F)SBP >= 140DBP <80 (3078F)Advance care planning discussed and documented ? advance care plan or surrogate decision-maker was documented in the medical record. (1123F)Pain Assessment - NO pain documented (1126F)Phone (patient, parent, or guardian); 21-30 minutes of medical discussion (no modifier 95)Continue to see PCP. Follow-up with [facility] as needed for any acute or disease education needs that may arise.PHQ-9 score: 8. TARA-7 score: 12Managed with alprazolam and temazepam. Continue medications as directed. Maintain safety and fall precautions. Encourage relaxation and reassurance techniques. Follow up with PCP as indicated.06/02/23: Stable. No changes. Continue to monitor.Discussed diet and weight management. Increase physical activities as tolerated. Maintain safety and fall precautions. Heart healthy diet encouraged. Follow up with PCP as indicated.06/02/23: Stable. No changes. Continue to monitor. BMI 32.01RX: temazepamEstablish sleep routine and scheduleAvoid taking a nap during the day.Take medication as prescribedContinue to monitorRX: EzetimibeContinue to monitorHeart healthy diet and daily activity Goals Date Goal 2022-09-30 Remember to follow u p with PCP and specialists as directed. 2022-09-30 Call me if you have any questions, comments, or concerns. 2022-09-30 Keep it up taking yo ur medications as prescribed. 2023-06-02 Remember to keep all appointments with your PCP. 2023-06-02 Discussed how to con ceci Arechiga via phone or tablet. 2023-06-02 Call if you have que stions or concerns before you go to the ER. Health Concerns Date Concern 2023-06-02 Visit complete using audio. Patient/Guardian agreed to visit via telehealth. Today, patient has chief complaint of: follow up care and comprehensive review.Reviewed Allergies, Medications, Active Medical conditions, past medical/surgical history, Social history. 2023-06-02 Advance Care Plan an d Serious Illness ConversationDate of Conversation: 06/02/2023urrently on Hospice NoLife Limiting Diagnosis: Diagnosis: Goals of Care: Curative: Attempt to sustain life by all medically effective meansCode Status: YES CPR: Attempt ResuscitationNutrition goals: No decision made about nutrition today; not discussedIf so, Who? Daughter - Elis Burgos you have a Durable Power of Bottle Tester for Healthcare, or Healthcare Proxy Or Guardianship? Yes, preferred proxy but not named POADo you have a written Advance Directive? Has Advance DirectiveOther details of discussion: (Who was present, patients description of wishes/goals) 2023-06-02 Most recent hospital stay(s) or ER visit(s) and precipitating factors: 02/04 - Hosp - mass under arm 2023-06-02 Open HEDIS Measure scar priest: yes
--- OUTSIDE RECORDS SUMMARY | 2025-03-09 09:46 | XMS_ITS | Clinical Summary ---
Author Organization [facility] Address [address] [place] [address] Care Team Providers Care Special Services Agent Name Role Phone Krys Watkins Primary Care Provider [phone] Allergies Active Allergy Reactions Criticality Noted Date Comments Aspirin Unknown Other Unknown Grains-grain rice Trazodone Dermatitis 09/03/2017 Wheat Unknown denies Medications XANAX 0.25 mg tablet 7 Active temazepam (RESTORIL) 30 mg capsule 7 Active GENTEAL SEVERE 0.3 % gel ophthalmic gel 7 Active acetaminophen (TYLENOL) 325 mg tablet Acetaminophen 325 MG Oral Tablet PT. STATES NO LONGER TAKES Refills: 0 Active Active polyvinyl alcohol (ARTIFICIAL TEARS) 1.4% ophthalmic solution Place 1 drop in both eyes 4 times daily and every 2 hours as needed fo Active artificial tears,hypromel lose, 0.3 % drops Active calcium carbonate (OS-KARISSA) 600 mg calcium (1,500 mg) tablet TK 1 T PO BID WITH MEAL 9 Active raloxifene (EVISTA) 60 mg tablet TOME MIKE TABLETA TODOS LOS D? 4 8 Active cetirizine (ZyrTEC) 10 mg tabletIndicati ons:Dermatitis Take 1 tablet (10 mg) daily as needed for itch 60 tablet 5 9 Active ALPRAZolam (XANAX) 0.25 mg tablet 0 Active nystatin-triam cinolone (MYCOLOG II) ointment 0 Active neomycin-polym yxin B-dexamethason e (MAXITROL) 3.5 mg/g-10,000 unit/g-0.1 % ointment 0 Active Mapap Arthritis Pain 650 mg 8 hr tablet TK 2 TS PO Q 8 H PRN 0 Active fluocinolone acetonide oiL 0.01 % drops SMARTSIG:In Ear(s) 1 Active ezetimibe (ZETIA) 10 mg tablet SMARTSI Tablet(s) By Mouth Daily 3 Active ketoconazole (NIZORAL) 2% shampooIndicat ions:Sebopsori asis Apply to damp skin, lather, leave on 5 to 10 minutes, and rinse. Use 2X a week. Alternate with salicylic acid shampoo. 120 mL 11 3 Active salicylic acid 3 % shampooIndicat ions:Sebopsori asis Use to wash hair twice weekly alternating with ketoconazole shampoo 473 mL 11 3 Active fluocinolone and shower cap 0.01 % oilIndications :Sebopsoriasis Apply to itchy spots on scalp nightly as needed for rash/itch, taper with improvement 118 mL 5 3 Active fluocinonide (LIDEX) 0.05% solutionIndica tions:Sebopsor iasis ONLY apply to skin that has rash. Use once daily as needed for rash/itch, taper with improvement 20 mL 5 3 Active triamcinolone acetonide (KENALOG) 0.1% creamIndicatio ns:Psoriasifor m dermatitis,Xer osis cutis Apply twice daily as needed to rash on extremities and back until improving, then gradually reduce to once a day for ~2 weeks and then 2-3 times a week. Do not use on face, groin or armpits. 454 g 3 3 Active Active Problems Problem Noted Date Diagnosed Date Psoriasis 09/22/2018 Chalazion of both eyes 09/22/2018 Seborrheic dermatitis of scalp 02/18/2017 Dermatitis 02/22/2014 Family History Medical History Relation Name Comments Other Daughter 1 Family History of hypertension Other Daughter 2 Family history of Anxiety and depression Other Father Family history of Anxiety and depression Other Mother Family history of Anxiety and depression Other Sister 1 Family History of hypertension Other Sister 2 Family history of Anxiety and depression Other Son 1 Family History of hypertension Other Son 2 Family history of Anxiety and depression Relation Name Status Comments Daughter 1 Daughter 2 Father Mother Sister 1 Sister 2 Son 1 Son 2 Social History Tobacco Use Types Packs/Day Years Used Date Smoking Tobacco: Never Smokeless Tobacco: Never Comments:: Comments Unknown Sex and Gender Information Value Date Recorded Sex Assigned at Female 04/26/2020 1:16 PM EDT Legal Sex Female 7:44 AM EDT Gender Identity Female Sexual Orientation Straight 04/26/2020 1: 16 PM EDT Last Filed Vital Signs Vital Sign Reading Time Taken Comments Blood Pressure 126/74 06/04/2017 9:52 AM EDT Pulse 78 06/04/2017 9:52 AM EDT Temperature 36.8 ??C (98.3 ??F) 12/14/2013 4:53 PM ES T Respiratory Rate - - Oxygen Saturation - - Inhaled Oxygen Concentration - - Weight 74.8 kg (165 lb) 10/31/2021 10:37 AM EST Height 157.5 cm (5' 2 ) 10/31/2021 10:37 AM EST Body Mass Index 30.18 10/31/2021 10:37 AM EST Plan of Treatment Health Maintenance Due Date Last Done Comments Osteoporosis Screening 1995 DTaP,Tdap,and Td Vaccines (1 - Tdap) 12/14/2017 12/13/2017 Pneumococcal Vaccine: 50+ Years (2 of 2 - PCV) 12/13/2018 12/13/2017 RSV Vaccine (60+ years old and patients) (1 - 1-dose 75+ series) 2020 Zoster Vaccines (2 of 2) 02/17/2022 12/23/2021 COVID-19 Vaccine (4 - season) 2024 10/06/2022, 11/06/2021, 02/05/2021 Alcohol/Substance Use Screening 11/15/2024 Health Care Proxy Review 11/15/2024 Influenza Vaccine (Season Ended) 2025 09/10/2022, 08/18/2020, 10/19/2018, Additional history exists Hepatitis B Vaccines Aged Out No long er eligible based on patient's age to complete this topic Insurance [address] [place] [id number] [facility] MCR Member Subscriber Plan / Payer (Ef fective 2022-Present) Name:Yasmine Mcdermott Relation to Subscriber:Self Name:Yasmine Mcdermott Payer ID:[id number] (NAIC) Group ID:[id number] Type:Not on file Address: [address] [place] [address] Care Teams Special Services Agent Relationship Specialty Start Date End Date Krys Watkins [address] [facility] [address] Jagdish [place], [place] [phone] PCP - General 06/03/17
--- OUTSIDE RECORDS SUMMARY | 2025-03-09 09:46 | XMS_ITS | Referral Summary ---
Author Organization [facility] Address [address] [place] [address] Care Team Providers Care Music Critic Name Role Phone Krys Watkins Primary Care Provider [phone] Allergies Active Allergy Reactions Criticality Noted Date [...] Seborrheic dermatitis of scalp 02/18/2017 Dermatitis 02/22/2014 Social History Tobacco Use Types Packs/Day Years [...] 10/31/2021 10:37 AM EST Plan of Treatment [place] [id number] [facility] [place] [id number] Care Teams Music Critic Relationship Specialty Start Date End Date Krys Watkins [address] [place] [address] dr Jagdish [place]on, [place] [phone] PCP - General 06/03/17
--- NOTE | 2025-03-09 10:06 | MHC.OFFVIS ---
Vital Signs 03/09/25 10:10 Height 5 ft 3 in Weight 183 lb 13.848 oz BMI 32.6 BP 152/70 H Blood Pressure Location Lt brachial Position Sitting Pulse 83 Pulse Source Pulse Oximeter Pulse Oximetry (%) 96 Oxygen Delivery Method Room Air Intake Visit Reasons: Osteoporosis Intake Note: Patient presents for Osteoporosis follow up. Agronomy Research Manager Required: Yes Agronomy Research Manager Language: Glass Forming Engineer Services: Agronomy Research Manager Present Agronomy Research Manager Name: Kobe [id number] Information Interpreted: non-clinical & clinical Allergies aspirin [ASPIRIN] Allergy (Intermediate, Verified 03/09/25 10:09) SWELLING, rash atenolol Allergy (Intermediate, Verified 03/09/25 10:09) dermatitis duloxetine Allergy (Intermediate, Verified 03/09/25 10:09) dermatitis sulindac Allergy (Intermediate, Verified 03/09/25 10:09) dermatitis tizanidine Allergy (Intermediate, Verified 03/09/25 10:09) dizziness trazodone Allergy (Unknown, Verified 03/09/25 10:09) dermatitis Statins Support Allergy (Intermediate, Uncoded 11/30/24 15:45) dermatitis alendronate Adverse Reaction (Severe, Uncoded 11/30/24 15:45) abdominal pain, palpitations Medication List - Last Reconciled 03/09/25 by Baylee Brandon MD acetaminophen ER 650 mg PO .every 6 hours PRN 30 days NS alprazolam 0.25 mg PO DAILY PRN 30 days calcium carbonate 600 mg PO DAILY 90 days carbamide peroxide 6.5% (Debrox) 5 drps otic (ears) DAILY cetirizine 10 mg PO DAILY 90 days cholecalciferol (vitamin D3) 20 mcg PO DAILY ezetimibe 10 mg PO DAILY 90 days flaxseed oil 1,000 mg PO DAILY guaifenesin ER (Mucinex) 600 mg PO BID 5 days magnesium oxide 500 mg PO DAILY temazepam 30 mg PO BEDTIME PRN 30 days walker As directed HPI Comments Details: Patient is a 79-year-old female with allergies, hyperlipidemia, mild recurrent major depression, hypertension, history of autoimmune thyroiditis, and osteoporosis here today for follow up Interval History: A patient last seen 09/14/[address] Snider. At that time she was establishing care for osteoporosis. Previously on Fosamax but could not tolerate it due to significant GI upset and based on her DEXA scan she was started on Reclast infusions. She received her 1st infusion 09/29/2024 Today, Patient complaining of back pain and numbness of the right leg No falls or fractures since the last visit Rheumatologic History: Osteoporosis based on bone density at the AP spine -2.9 Initially started on Fosamax but did not tolerate it due to GI upset Started on IV Reclast 09/2024 Current Rheumatology Medication(s): IV Reclast 5mg yearly Vitamin D supplementation [facility] Medical History (Updated 03/09/25 @ 10:42 by Baylee Brandon MD) Mild recurrent major depression Palpitations PVD (peripheral vascular disease) Insomnia Autoimmune thyroiditis Dyslipidemia Anxiety Vitamin D deficiency Thyroid nodule Osteoporosis Depression HTN (hypertension) HLD (hyperlipidemia) Surgical History History of esophagogastroduodenoscopy (EGD) Hx of cornea transplant Hx of colonoscopy Hx of cataract surgery Family History Sister Osteoporosis Father No problems noted. Paternal Aunt Stroke Mother No problems noted. Social History Housing: Apartment Alcohol intake: never Patient Tobacco Use Status: Never used Tobacco e-Cigarette/Vaping Use: Never Used Second Hand Smoke Exposure: No service: No Current occupational status: disabled Cognitive needs: Yes Hearing needs: No Vision needs: Yes Review of Systems Const Details: Review of Systems Constitutional: Denies fever, chills, weight loss ENT: Denies vision changes, eye pain or eye redness, dental caries, dry mouth GI: Denies nausea, vomiting, diarrhea, abdominal pain, change in BM Pulm: Denies SOB, HENDERSON, hemoptysis, wheezing Cards: Denies chest pain, palpitations Skin: Denies Raynaud's, rash, nail changes, photosensitivity, APPLICATION PENETRATION TESTER: Denies headaches, weakness, paresthesias, recurrent falls MSK: as per HPI All other systems reviewed and are unremarkable except noted above Physical Exam Vital Signs: Last Vital Signs Pulse 83 03/09/25 10:10 BP 152/70 H 03/09/25 10:10 Pulse Ox 96 03/09/25 10:10 Oxygen Delivery Method Room Air 03/09/25 10:10 BMI result Body Mass Index 32.6 Vital signs reviewed Physical Examination CONSTITUITIONAL Patient alert and cooperative. Using a walker Frail Hyperkyphosis and scoliosis MSK Hands: ?Able to make a fist. No synovitis noted to the MCPs, PIPs or DIPs. ?No tenderness to palpation of these joints. No deformities noted. ? Wrists: ?Full range of motion at the wrists without pain. ?No tenderness to palpation or synovitis noted to the wrists. Elbows: Full range of motion without pain. No tenderness, weakness, swelling, increased warmth or erythema. Shoulders: Full range of active range of motion without pain. No tenderness, weakness, swelling, increased warmth or erythema. Knees: ?Full range of motion. ?No tenderness, swelling, increased warmth or erythema.?Crepitations Ankles: Full range of motion. ?No tenderness, swelling, increased warmth or erythema.? Feet: ?Negative squeeze test. ?No tenderness to palpation or swelling of the MTPs. Tender points:?No tenderness to palpation of the bilateral trapezius, supraspinatus, greater trochanters, anterior costochondral junctions, bilateral gluteal areas, bilateral suboccipital muscle insertions SKIN Skin intact without rashes. Results Reviewed Results Reviewed: Laboratory Tests 06/03/24 09/16/24 Unknown 07:36 Sodium 142 Potassium 4.1 Chloride 105 Carbon Dioxide 29 Anion Gap 12 BUN 24 H Creatinine 0.76 25-OH Vitamin D Total 53.2 DEXA 01/2024 FINDINGS: LEFT FEMUR, NECK: Current: BMD 0.930 g/cm2, Z-score 1.0, T-score -0.8, normal. Prior: BMD 0.910 g/cm2. Baseline: BMD 0.971 g/cm2. LEFT FEMUR, TOTAL: Current: BMD 1.042 g/cm2, Z-score 1.9, T-score 0.3, normal, 1.1% increase from previous, 4.8% decrease from baseline (<5% change is not significant). Prior: BMD 1.031 g/cm2. Baseline: BMD 1.095 g/cm2. AP SPINE L1-L4: Current: BMD 0.835 g/cm2, Z-score -1.5, T-score -2.9, osteoporosis, 4.0% decrease from previous, 8.2% decrease from baseline (<5% change is not significant). Prior: BMD 0.870 g/cm2. Baseline: BMD 0.910 g/cm2. Assessment & Plan Assessment & Plan (1) Age related osteoporosis: Comment: DEXA 01/2022: AP Spine -2.6, Left femur neck -0.9, Left femur total 0.2 DEXA 01/2024: AP Spine -2.9, Left femur neck -0.8, Left femur total 0.3 Alendronate - did not tolerate, GI upset Reclast 09/2024 Code(s): M81.0 - Age-related osteoporosis without current pathological fracture Category: Medical Qualifiers: Presence of current pathological fracture: without current pathological fracture Qualified Code(s): M81.0 - Age-related osteoporosis without current pathological fracture Plan: #Osteoporosis Patient is a 79-year-old female with osteoporosis of the AP spine here today for follow up. No falls or fractures since the last visit. Tolerated her IV infusion of Reclast in September. Plan - IV reclast 5mg yearly, next due 09/2025 - Vitamin D supplementation - RTC 6 months - Labs before visit: CBC, CMP, ESR, CRP, Vit D (2) Back pain: Code(s): M54.9 - Dorsalgia, unspecified Qualifiers: Back pain location: low back pain Chronicity: chronic Back pain laterality: unspecified Sciatica presence: unspecified whether sciatica present Qualified Code(s): M54.50 - Low back pain, unspecified; G89.29 - Other chronic pain Plan: #Back pain Patient complaining of back pain with numbness to her right lower extremity Given her significant back osteoporosis and hyperkyphosis, concern for subclinical/non traumatic fractures Plan - XR T spine and L spine (3) Encounter for ongoing osteoporosis therapy, bisphosphonates: Code(s): M81.0 - Age-related osteoporosis without current pathological fracture; Z79.83 - shelter (current) use of bisphosphonates Plan: #Long-term Use of Bisphosphonates Risks and benefits of bisphosphonates in the management of osteoporosis Benefits include improved bone density, decreased fracture risk Risks include atypical femoral fractures, GI upset, esophageal strictures Contraindicated in patients with a creatinine clearance < 30 to 35 ml/min Keep vitamin-D at least 35 ng/mL Plan I spent 20 minutes reviewing the record and labs, taking a history, examining the patient, discussing the treatment plan, ordering diagnostic work up and documenting in the medical record Orders: Orders XR lumbar spine 4V min Today M54.9 - Dorsalgia, unspecified XR sacroiliac joint min 3V Today M54.9 - Dorsalgia, unspecified Complete Blood Count Auto Diff 6 Months E55.9 - Vitamin D deficiency, unspecified, M81.0 - Age-related osteoporosis without current pathological fracture C Reactive Protein 6 Months E55.9 - Vitamin D deficiency, unspecified, M81.0 - Age-related osteoporosis without current pathological fracture Vitamin D 25-OH (D2 and D3) 6 Months E55.9 - Vitamin D deficiency, unspecified, M81.0 - Age-related osteoporosis without current pathological fracture XR thoracic spine 3V Today M54.9 - Dorsalgia, unspecified Comprehensive Met. Panel 6 Months E55.9 - Vitamin D deficiency, unspecified, M81.0 - Age-related osteoporosis without current pathological fracture Erythrocyte Sedimentation Rate 6 Months E55.9 - Vitamin D deficiency, unspecified, M81.0 - Age-related osteoporosis without current pathological fracture Coding Level of Care Code Est Pt Level 3 (78350) Complex EM visit Add On G2211 Diagnoses Age-related osteoporosis without current pathological fracture M81.0 Presence of current pathological fracture: without current pathological fracture Chronic low back pain, unspecified back pain laterality, unspecified whether sciatica present M54.50; G89.29 Back pain location: low back pain Chronicity: chronic Back pain laterality: unspecified Sciatica presence: unspecified whether sciatica present Encounter for ongoing osteoporosis therapy, bisphosphonates M81.0; Z79.83
[2025-03-09 10:10] VITALS: BP 152/70; PULSE 83; O2SAT 96; BMI 32.6
== END 2025-03-09 10:34 | disposition home or self-care (01) ==
LOC: HO.RHE 09:33
PROVIDERS: PCP Internal Medicine; Visit Provider Student in an Organized Health Care Education/Training Program
DX: M81.0 Age-related osteoporosis without current pathological fracture (principal); M54.50 Low back pain, unspecified; G89.29 Other chronic pain; Z79.83 Long term (current) use of bisphosphonates
CPT/HCPCS: 99213; G2211

== ENCOUNTER → 2025-03-09 10:49 | Outpatient (BNV) | payer OTHER, SELFPAY | PROVIDERS: PCP Internal Medicine; Visit Provider Radiology Diagnostic Radiology | DX: M47.815 Spondylosis without myelopathy or radiculopathy, thoracolumbar region (principal); I70.0 Atherosclerosis of aorta; M54.50 Low back pain, unspecified | CPT/HCPCS: 72072; 72110; 72202 ==

== ENCOUNTER 2025-03-24 07:38 | Outpatient (REF) | payer OTHER, SELFPAY ==
--- OUTSIDE RECORDS SUMMARY | 2025-03-24 07:40 | XMS_ITS ---
Author Name Kiera Chase APRN Address [address] [place] [address] Phone [phone] [facility] Care Team Providers Care Tripe Scraper Name Role Phone Kaitlin Chase Unavailable [phone] MICHELLE SAM Unavailable [phone] Reason for Referral Not Available Allergies, adverse reactions, alerts Allergen Type Reaction Severity Status Onset Date Atenolol Allergy to substance (disorder) Itching Unknown Active N/A Aspirin Allergy to substance (disorder) Itching Unknown Active N/A History of medication use Medication Class Instructions Start Date End Date Wszikodc-Omgxtkoqa-Fnpfujui 3.5-98416-6.1 Oint No Data Available 2022-04-08 2022-09-30 ALPRAZolam [...] (do not use for phone, instead use 29374-10) [facility], ([place]) 09/30/2022 Major depressive disorder, recurrent, mildAnxiety disorder, unspecifiedMorbid (severe) obesity due to excess caloriesInsomnia due to other mental disorderBody mass index (bmi) 31.0-31.9, adult New patient,40-59min; chronic exacerbation, 2 stable chronic or 1 acute illness add add modifier 95 for video (do not use for phone, instead use 93565-31) [facility] 09/30/20[place] New patient,40-59min; chronic exacerbation, 2 stable chronic or 1 acute illness add add modifier 95 for video (do not use for phone, instead use 64430-66) [facility] 09/[place]/20[place] New patient,40-59min; chronic exacerbation, 2 stable chronic or 1 acute illness add add modifier 95 for video (do not use for phone, instead use 26549-12) [facility] 09/30/20[place] New patient,40-59min; chronic exacerbation, 2 stable chronic or 1 acute illness add add modifier 95 for video (do not use for phone, instead use 32966-94) [facility] [place] 09/30/2022 New patient,40-59min; chronic exacerbation, 2 stable chronic or 1 acute illness add add modifier 95 for video (do not use for phone, instead use 75334-12) [facility] 09[place]/20[place] New patient,40-59min; chronic exacerbation, 2 stable chronic or 1 acute illness add add modifier 95 for video (do not use for phone, instead use 94529-42) [facility] New patient,40-59min; chronic exacerbation, 2 stable chronic or 1 acute illness add add modifier 95 for video (do not use for phone, instead use 73368-56) [facility]20[place] New patient,40-59min; chronic exacerbation, 2 stable chronic or 1 acute illness add add modifier 95 for video (do not use for phone, instead use 44562-82) [facility]20[place] No Data Available [facility]2023 Peripheral vascular disease, unspecifiedMajor depressive disorder, recurrent, mildAnxiety disorder, unspecifiedInsomnia due to other mental disorderObesity, unspecifiedBody mass index (bmi) 32.0-32.9, adult No Data Available [facility] 06[place]02[place]2023 No Data Available [facility]20[place] No Data Available [facility] No Data Available [facility] No Data Available [facility] No Data Available [facility] No Data Available [facility] No Data Available [facility] No Data Available [facility] No Data Available [facility] [place]2023 Vital Signs Date of [...] tive Time Current Smoking Status Never smoker 2025-03-15 0 Sex Female History of Procedures Procedures Service Procedure code Service date Servicing provider Phone# New patient,40-59min; chronic exacerbation, 2 stable chronic or 1 acute illness add add modifier 95 for video (do not use for phone, instead use 72662-38) 61184 2022-09-30 No Data Available No Data Availa [...] Available No Data Available No Data Available [id number] 2023-06-02 No Data Available No Data Available [...] [place] you have a Durable Power of Delivery Rn for Healthcare, or Healthcare Proxy Or Guardianship? [...]
--- OUTSIDE RECORDS SUMMARY | 2025-03-24 07:40 | XMS_ITS | Clinical Summary ---
Author Organization [facility] Address [address] [place] [address] Care Team Providers Care Travel Assistant Name Role Phone Krys Watkins Primary Care Provider [phone] Allergies Active Allergy Reactions Criticality Noted Date [...] complete this topic Insurance [address] [id number] [facility] MCR Member Subscriber Plan / Payer (Ef fective 2022-Present) Name:Yasmine Mcdermott Relation to Subscriber:Self Name:Yasmine Mcdermott Payer ID:[id number] (NAIC) Group ID:[id number] Type:Not on file Address: [address] [place] [address] Care Teams Travel Assistant Relationship Specialty Start Date End Date Krys Watkins [address] [facility] [address] Jagdish [place]on, [place] [phone] PCP - General 06/03/17
--- OUTSIDE RECORDS SUMMARY | 2025-03-24 07:40 | XMS_ITS | Referral Summary ---
Author Organization [facility] Address [address] [place] [address] Care Team Providers Care Tabulating Supervisor Name Role Phone Krys Watkins Primary Care Provider [phone] Allergies Active Allergy Reactions Criticality Noted Date [...] of Treatment [place] [id number] [facility] [place] [id number] Care Teams Tabulating Supervisor Relationship Specialty Start Date End Date Krys Watkins [address] [place] [address] dr Jagdish Dubon, [place] [phone] PCP - General 06/03/17
[2025-03-24 10:02] LABS: Alanine Aminotransferase 27 U/L (0-31); Albumin Level 4.3 g/dL (3.5-5.0); Alkaline Phosphatase 63 U/L (39-117); Anion Gap 13 (12-20); Aspartate Amino Transferase 27 U/L (5-31); Bilirubin Total 0.4 mg/dL (0.0-1.0); Blood Urea Nitrogen 25 mg/dL (9-16); Calcium 9.7 mg/dL (8.4-10.2); Carbon Dioxide 29 mmol/L (22-29); Chloride 105 mmol/L (96-108); Cholesterol 175 mg/dL (<200); Estimated Glomerular Filt Rate > 60; Glucose Fasting 102 mg/dL (60-99); HDL Cholesterol 47 mg/dL (>40); LDL Cholesterol Calculated 109 mg/dL (<100); Potassium 4.1 mmol/L (3.3-5.1); Sodium 143 mmol/L (135-145); Triglycerides 96 mg/dL (<150)
[2025-03-24 10:21] LABS: Thyroid Stimulating Hormone 2.77 uIU/mL (0.32-4.0); Vitamin D 25-OH Total 48.1 ng/mL (>30)
== END 2025-03-24 07:39 | disposition home or self-care (01) ==
LOC: HO.LAB 07:38
PROVIDERS: PCP Internal Medicine; Visit Provider Internal Medicine
DX: Z00.00 Encounter for general adult medical examination without abnormal findings (principal); E78.5 Hyperlipidemia, unspecified; E06.3 Autoimmune thyroiditis; E55.9 Vitamin D deficiency, unspecified
CPT/HCPCS: 36415; 80053; 80061; 82306; 84443

== ENCOUNTER 2025-04-10 15:11 | Outpatient (AMB) | payer OTHER, SELFPAY ==
--- OUTSIDE RECORDS SUMMARY | 2025-04-10 15:14 | XMS_ITS | Clinical Summary ---
Author Organization [facility] Address [address] [place] [address] Care Team Providers Care Associate Store Leader Name Role Phone Krys Watkins Primary Care Provider [phone] Allergies Active Allergy Reactions Criticality Noted Date [...] complete this topic Insurance [address] [place] [address] [id number] [facility] MCR Member Subscriber Plan / Payer (Ef fective 2022-Present) Name:Yasmine Mcdermott Relation to Subscriber:Self Name:Yasmine Mcdermott Payer ID:[id number] (NAIC) Group ID:[id number] Type:Not on file Address: [address] [place] [address] Care Teams Associate Store Leader Relationship Specialty Start Date End Date Krys Watkins [address] [facility] [address] Jagdish [place]on, [place] [phone] PCP - General 06/03/17
--- NOTE | 2025-04-10 15:17 | MHC.PC.OV ---
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 Accompanied by: Daughter Allergies aspirin [ASPIRIN] Allergy (Intermediate, Verified 04/10/25 15:40) SWELLING, rash atenolol Allergy (Intermediate, Verified 04/10/25 15:40) dermatitis duloxetine Allergy (Intermediate, Verified 04/10/25 15:40) dermatitis sulindac Allergy (Intermediate, Verified 04/10/25 15:40) dermatitis tizanidine Allergy (Intermediate, Verified 04/10/25 15:40) dizziness trazodone Allergy (Unknown, Verified 04/10/25 15:40) dermatitis Statins Support Allergy (Intermediate, Uncoded 04/10/25 15:40) dermatitis alendronate Adverse Reaction (Severe, Uncoded 04/10/25 15:40) abdominal pain, palpitations Medication List - Last Reconciled 04/10/25 by Krys Oro MD acetaminophen ER 650 mg PO .every 6 hours PRN 30 days NS alprazolam 0.25 mg PO DAILY PRN 30 days calcium carbonate 600 mg PO DAILY 90 days carbamide peroxide 6.5% (Debrox) 5 drps otic (ears) DAILY cetirizine 10 mg PO DAILY 90 days cholecalciferol (vitamin D3) 20 mcg PO DAILY ezetimibe 10 mg PO DAILY 90 days flaxseed oil 1,000 mg PO DAILY guaifenesin ER (Mucinex) 600 mg PO BID 5 days magnesium oxide 500 mg PO DAILY temazepam 30 mg PO BEDTIME PRN 30 days walker As directed Tobacco use date assessed: 11/30/24 Fall risk assessment: No Falls in past year Last assessed Fall Risk: 04/10/25 Dental Screening Dental Screen Date: 11/30/24 HPI HPI Comments History of Present Illness Details The patient is an 80-year-old female presenting for her physical exam with elevated blood pressure and neuropathic pain concerns. Recently, her blood pressure has risen to 198/84 mmHg, compared to earlier readings of 152/70 mmHg, signaling potential escalation of her hypertension. She expresses concern over occasional chest pain and arm discomfort, which might be related to her blood pressure management. Furthermore, the patient experiences neuropathic pain, particularly as a burning sensation in her feet that disrupts her sleep. The pain's persistence indicates the need for careful management, mindful of her expressed desire to avoid sedative medications due to potential addiction. Her complex allergy history complicates potential medication choices. Previously, she has experienced negative reactions to common medications like aspirin, statins, and specific multifaceted analgesics. - Pneumonia vaccine up-to-date - No current need for colonoscopy or mammograms due to age [facility] Medical History (Updated 04/10/25 @ 16:57 by Krys Oro MD) Mild recurrent major depression Palpitations PVD (peripheral vascular disease) Insomnia Autoimmune thyroiditis Dyslipidemia Anxiety Vitamin D deficiency Thyroid nodule Osteoporosis Depression HTN (hypertension) HLD (hyperlipidemia) Surgical History History of esophagogastroduodenoscopy (EGD) Hx of cornea transplant Hx of colonoscopy Hx of cataract surgery Family History Sister Osteoporosis Father No problems noted. Paternal Aunt Stroke Mother No problems noted. Social History Housing: Apartment Alcohol intake: never Patient Tobacco Use Status: Never used Tobacco e-Cigarette/Vaping Use: Never Used Second Hand Smoke Exposure: No service: No Current occupational status: disabled Cognitive needs: Yes Hearing needs: No Vision needs: Yes Questionnaire PHQ-9 Over the last 2 weeks, how often have you been bothered by any of the following problems? 1. Little interest or pleasure in doing things: not at all 2. Feeling down, depressed, or hopeless: not at all 3. Trouble falling or staying asleep, or sleeping too much: not at all 4. Feeling tired or having little energy: not at all 5. Poor appetite or overeating: not at all 6. Feeling bad about yourself - or that you are a failure or have let yourself or your family down: not at all 7. Trouble concentrating on things, such as reading the newspaper or watching television: not at all 8. Moving or speaking so slowly that other people could have noticed. Or the opposite - being so fidgety or restless that you have been moving around a lot more than usual: not at all 9. Thoughts that you would be better off or of hurting yourself in some way: not at all Total score: 0 Depression Screening Interpretation: Negative Depression Screening Done: Yes 44883 - PHQ-9 Billing: Yes Source: Developed by Drs. Sunny Handley, Daniella Burk, Buster Rajan and colleagues, with an educational sussy from [employer]. Thrive Questionnaire Date Thrive assessed: 04/10/25 I am a: Patient What is your living situation today?: I have a steady place to live Within the past 12 months, did the food you bought not last and you didn't have the money to get more?: I choose not to answer this question Within the past 12 months, did you worry whether your food would run out before you got money to buy more?: I choose not to answer this question Do you have trouble paying for medicines?: I choose not to answer this question Do you have trouble getting transportation to medical appointments?: I choose not to answer this question Do you have trouble paying your heating and electricity bill?: I choose not to answer this question Do you have trouble taking care of your child, family member or friend?: I choose not to answer this question Do you have trouble with day-to-day activities such as bathing, preparing meals, shopping, managing finances, etc.?: I choose not to answer this question Are you currently unemployed and looking for a job?: I choose not to answer this question Are you interested in more education?: I choose not to answer this question Please select the resources that you would like help with: None Currently or been in a relationship where the following occur: I choose not to answer THRIVE Score: 0 AUDIT C Alcohol Use Questionnaire (AUDIT-C) 1. How often do you have a drink containing alcohol?: Never Total Score: 0 Score Reviewed/Action Taken: No TARA-7 AMB Questionnaire TARA-7 Date TARA - 7 assessed: 04/10/25 Feeling nervous, anxious, or on edge: 0 = Not at all Not being able to stop or control worryin = Not at all Worrying too much about different things: 0 = Not at all Trouble relaxin = Not at all Being so restless that it is hard to sit still: 0 = Not at all Becoming easily annoyed or irritable: 0 = Not at all Feeling afraid as if something awful might happen: 0 = Not at all Total TARA-7 score (0-4 normal; 5-9 mild; 10-14 moderate; 15-21 severe): 0 Source: Developed by Drs. Sunny Handley, Daniella Burk, Buster Rajan and colleagues, with an educational sussy from [employer]. TARA-7 Assessment Billing TARA-7 Assessment Tool: TARA-7 Assessment 34235 Review of Systems Const All systems reviewed & are unremarkable except as noted in HPI and below Card Denies chest pain at rest, Denies chest pain with activity, Denies edema, Denies irregular heart rhythm, Denies claudication, Denies dyspnea, Denies dyspnea on exertion, Denies orthopnea, Denies paroxysmal nocturnal dyspnea and Denies slow heart rate Resp Denies cough, Denies dyspnea and Denies dyspnea on exertion GI Denies abdominal pain, Denies change in bowel habits, Denies excessive flatus, Denies nausea and Denies vomiting Physical exam (Primary Care) Vital Signs: Last Vital Signs BP 198/84 H 04/10/25 15:18 BMI result Body Mass Index 32.4 BMI Assessment/Plan discussion: High BMI High, discussed plan: lifestyle, weight reduction, dietary and physical activity Tobacco/Smoking Status: Tobacco use Status Tobacco use date assessed 11/30/24 04/10/25 15:22 Patient Tobacco Use Status Never used Tobacco 04/10/25 15:22 Tobacco use type 05/25/22 09:59 e-Cigarette/Vaping Use Never Used 04/10/25 15:22 PHQ-9: PHQ-9 Score PHQ-9: Total score 0 04/10/25 15:44 Depression Screening Interpretation: Negative Thrive Assessment: Date of Thrive Assessment Date Thrive assessed 04/10/25 04/10/25 15:22 Currently or been in a relationship where the following occur: I choose not to answer HENKY Head: Yes normal to inspection, Yes normocephalic and Yes atraumatic Ears: external ears normal Eyes General: appearance normal, both eyes and all related structures Eyelids: Yes eyelids normal Conjunctivae: conjunctivae normal Neck Neck: Yes normal visual inspection and Yes supple Resp Effort & Inspection: normal respiratory effort Auscultation: clear to auscultation bilaterally Cardio Jugular venous distension: no JVD Rate: regular rate Rhythm: regular rhythm Heart sounds: S1 normal heart sound present and S2 normal heart sound present GI Inspection: Yes normal to inspection Palpation (GI): Soft to palpation and nontender Auscultation: normal bowel sounds Skin General skin exam: no rashes or lesions noted Neuro General: no focal motor deficits Extrem General: Yes full ROM Psych Appearance: grossly normal Coding Level of Care Code Est Pt Level 3 (68911) Est Pt Prev Care >65y(15914) Diagnoses Physical exam Z00.00 Essential hypertension I10 Chest pain R07.9 Neuropathy G62.9 Additional Codes TARA-7 Assessment Billing - TARA-7 Assessment Tool: TARA-7 Assessment 25589 ([id number]) PHQ-9 - 54315 - PHQ-9 Billing: Yes ([id number]) Time Spent (min) 36 Assessment & Plan Assessment & Plan (1) Physical exam: Code(s): Z00.00 - Encounter for general adult medical examination without abnormal findings Category: Medical (2) Essential hypertension: Code(s): I10 - Essential (primary) hypertension Category: Medical (3) Chest pain: Code(s): R07.9 - Chest pain, unspecified Category: Medical (4) Neuropathy: Code(s): G62.9 - Polyneuropathy, unspecified Category: Medical Plan We will start the patient on losartan 25 mg daily to manage her essential hypertension. Gabapentin at night was recommended to address neuropathic pain, considering her preference for nighttime dosing due to its sedative properties. Given her significant medication allergies, caution is required in medication choice and monitoring. An electrocardiogram was recommended to evaluate her occasional chest discomfort. The patient is advised to continue osteoporosis management with her faculty neuropsychologist. She was briefed on lifestyle measures, including maintaining an active lifestyle and optimizing dietary habits to manage her chronic conditions effectively. Patient was informed and verbally consented to the use of an ambient scribe for clinic note documentation during this visit. I discussed with the patient her hypertension management, focusing on the necessity of addressing her elevated readings with losartan and managing potential side effects. For neuropathic pain, we considered gabapentin's sedative effects, weighting the potential for improved sleep against the risks of dependency. In discussing her occasional chest pain, I emphasized the need for an electrocardiogram to preempt potential cardiac events, given her hypertension's severity. We talked about her management of arthritis and osteoporosis within the context of her overall well-being, aligning her therapeutic goals with ongoing specialist care. I answered her queries on medication side effects and involved her in decision-making regarding her health care paths, fostering comprehensive understanding and autonomy. Orders: Orders ECG 12 lead EKG Today R07.9 - Chest pain, unspecified Medications: New gabapentin 300 mg PO BEDTIME 30 caps 0RF 30 days losartan 25 mg PO DAILY 90 tabs 1RF 90 days I10 - Essential (primary) hypertension Patient Instructions: - Take losartan 25 mg daily each morning. - Take gabapentin at night to help with the burning sensation in your feet. - Schedule an electrocardiogram as discussed. - Maintain active communication with your faculty neuropsychologist for osteoporosis management. - Engage in regular physical activity, within your comfort, to assist in managing arthritis and osteoporosis. - Monitor for any new or worsening symptoms and report them promptly.
[2025-04-10 15:18] VITALS: BP 198/84; BMI 32.4
== END 2025-04-10 16:02 | disposition home or self-care (01) ==
LOC: HO.HMCH 15:11
PROVIDERS: PCP Internal Medicine; Visit Provider Internal Medicine
DX: Z00.00 Encounter for general adult medical examination without abnormal findings (principal); I10 Essential (primary) hypertension; R07.9 Chest pain, unspecified; G62.9 Polyneuropathy, unspecified

== ENCOUNTER → 2025-04-10 15:11 | Outpatient (BNVA) | payer OTHER, SELFPAY | PROVIDERS: PCP Internal Medicine; Visit Provider Internal Medicine | DX: Z00.00 Encounter for general adult medical examination without abnormal findings (principal); I10 Essential (primary) hypertension; R07.9 Chest pain, unspecified; G62.9 Polyneuropathy, unspecified | CPT/HCPCS: 96127; 99212; 99397 ==

== ENCOUNTER → 2025-04-13 13:20 | Outpatient (REF) | payer OTHER, SELFPAY ==
--- NOTE | 2025-04-13 13:24 | ECG_ITS ---
Test Reason : CHEST PAIN Blood Pressure : */* mmHG Vent. Rate : 81 BPM Atrial Rate : 81 BPM P-R Int : 142 ms QRS Dur : 76 ms QT Int : 354 ms P-R-T Axes : 69 58 57 degrees QTcB Int : 411 ms Normal sinus rhythm Possible Left atrial enlargement Borderline ECG When compared with ECG of 28-Aug-2014 11:42, No significant change was found Referred By: Krys Oro Electronically Signed By: DOLORES GUSTAFSON MD
--- OUTSIDE RECORDS SUMMARY | 2025-04-13 13:28 | XMS_ITS | Clinical Summary ---
Author Organization [facility] Address [address] [place] [address] Care Team Providers Care Export Documents Clerk Name Role Phone Krys Watkins Primary Care Provider [phone] Allergies Active Allergy Reactions Criticality Noted Date [...] complete this topic Insurance [address] [place] [id number] [facility] MCR Member Subscriber Plan / Payer (Ef fective 2022-Present) Name:Yasmine Mcdermott Relation to Subscriber:Self Name:Yasmine Mcdermott Payer ID:[id number] (NAIC) Group ID:[id number] Type:Not on file Address: [address] [place] [address] Care Teams Export Documents Clerk Relationship Specialty Start Date End Date Krys Watkins [address] Jagdish [place], [place] [phone] PCP - General 06/03/17
== END ==
LOC: HO.CARD 13:20
PROVIDERS: PCP Internal Medicine; Visit Provider Internal Medicine
DX: R07.9 Chest pain, unspecified (principal)
CPT/HCPCS: 93005

== ENCOUNTER → 2025-04-13 13:24 | Outpatient (BNV) | payer OTHER, SELFPAY | PROVIDERS: PCP Internal Medicine; Visit Provider Internal Medicine Cardiovascular Disease | DX: R07.9 Chest pain, unspecified (principal) | CPT/HCPCS: 93010 ==

== ENCOUNTER → 2025-04-27 13:02 | Outpatient (BNVA) | payer OTHER, SELFPAY | PROVIDERS: PCP Internal Medicine | DX: Z13.89 Encounter for screening for other disorder (principal) ==

== ENCOUNTER → 2025-05-25 13:06 | Outpatient (BNVA) | payer OTHER, SELFPAY | PROVIDERS: PCP Internal Medicine | DX: Z01.30 Encounter for examination of blood pressure without abnormal findings (principal) | CPT/HCPCS: 99211 ==

== ENCOUNTER 2025-08-14 16:34 | Outpatient (AMB) | payer OTHER, SELFPAY ==
[2025-08-14 16:41] VITALS: BP 140/64; PULSE 86; RESP 18; TEMP 36.3; O2SAT 95; BMI 32.4
--- NOTE | 2025-08-14 16:41 | A.OFFPC_ITS ---
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 Accompanied by: Self / Same As Patient Allergies aspirin (ASPIRIN) Allergy (Intermediate, Verified 08/14/25 16:50) SWELLING, rash atenolol Allergy (Intermediate, Verified 08/14/25 16:50) dermatitis duloxetine Allergy (Intermediate, Verified 08/14/25 16:50) dermatitis sulindac Allergy (Intermediate, Verified 08/14/25 16:50) dermatitis tizanidine Allergy (Intermediate, Verified 08/14/25 16:50) dizziness trazodone Allergy (Unknown, Verified 08/14/25 16:50) dermatitis Statins Support Allergy (Intermediate, Uncoded 08/14/25 16:50) dermatitis alendronate Adverse Reaction (Severe, Uncoded 08/14/25 16:50) abdominal pain, palpitations Medication List - Last Reconciled 08/14/25 by Krys Oro MD acetaminophen ER 650 mg PO .every 6 hours PRN 30 days NS alprazolam 0.25 mg PO DAILY PRN 30 days calcium carbonate 600 mg PO DAILY 90 days carbamide peroxide 6.5% (Debrox) 5 drps otic (ears) DAILY cetirizine 10 mg PO DAILY 90 days cholecalciferol (vitamin D3) 20 mcg PO DAILY ezetimibe 10 mg PO DAILY 90 days flaxseed oil 1,000 mg PO DAILY gabapentin 300 mg PO BEDTIME 30 days losartan 25 mg PO DAILY 90 days magnesium oxide 500 mg PO DAILY temazepam 30 mg PO BEDTIME PRN 30 days walker As directed Tobacco use date assessed: 08/14/25 Fall risk assessment: No Falls in past year Last assessed Fall Risk: 08/14/25 Dental Screening Dental Screen Date: 08/14/25 Did you have a dental visit in the last 12 months?: No Did you have a dental problem in the last 6 months where you did not have access to dental care?: No Was dental information given to patient?: No HPI HPI Comments History of Present Illness Details The patient is an 80-year-old female presenting with sciatica and hypertension. The patient reports experiencing sciatica on the right side, which causes her leg to fall asleep and results in pain that radiates from her back to her right leg. This condition has been persistent and was previously managed with gabapentin, which the patient discontinued due to adverse effects. The patient's hypertension is currently managed with losartan 25 mg, and her blood pressure readings have been stable. She reports that her blood pressure tends to rise despite medication, but recent readings have shown improvement. The patient has a history of hyperlipidemia, which is being managed with ezetimibe, and recent laboratory results indicate that her cholesterol levels are well-controlled. The patient experiences anxiety and insomnia, for which she is prescribed alprazolam and temazepam, respectively. She also has multiple medication allergies, including aspirin, atenolol, duloxetine, sulindac, anivina, trazodone, statins, and alendronate, which causes gastrointestinal discomfort. [facility] Medical History (Updated 08/14/25 @ 16:56 by Krys Oro MD) Mild recurrent major depression Palpitations PVD (peripheral vascular disease) Insomnia Autoimmune thyroiditis Dyslipidemia Anxiety Vitamin D deficiency Thyroid nodule Osteoporosis Depression HTN (hypertension) HLD (hyperlipidemia) Surgical History History of esophagogastroduodenoscopy (EGD) Hx of cornea transplant Hx of colonoscopy Hx of cataract surgery Family History Sister Osteoporosis Father No problems noted. Paternal Aunt Stroke Mother No problems noted. Social History Housing: Apartment Alcohol intake: never Patient Tobacco Use Status: Never used Tobacco e-Cigarette/Vaping Use: Never Used Second Hand Smoke Exposure: No service: No Current occupational status: disabled Cognitive needs: Yes Hearing needs: No Vision needs: Yes Questionnaire Thrive Questionnaire Date Thrive assessed: 04/10/25 I am a: Patient What is your living situation today?: I have a steady place to live Within the past 12 months, did the food you bought not last and you didn't have the money to get more?: I choose not to answer this question Within the past 12 months, did you worry whether your food would run out before you got money to buy more?: I choose not to answer this question Do you have trouble paying for medicines?: I choose not to answer this question Do you have trouble getting transportation to medical appointments?: I choose not to answer this question Do you have trouble paying your heating and electricity bill?: I choose not to answer this question Do you have trouble taking care of your child, family member or friend?: I choose not to answer this question Do you have trouble with day-to-day activities such as bathing, preparing meals, shopping, managing finances, etc.?: I choose not to answer this question Are you currently unemployed and looking for a job?: I choose not to answer this question Are you interested in more education?: I choose not to answer this question Please select the resources that you would like help with: None Currently or been in a relationship where the following occur: I choose not to answer THRIVE Score: 0 AUDIT C Alcohol Use Questionnaire (AUDIT-C) 2. How many drinks containing alcohol do you have on a typical day when you are drinking?: 1 or 2 3. How often do you have six or more drinks on one occasion?: Never Total Score: 0 TARA-7 AMB Questionnaire TARA-7 Date TARA - 7 assessed: 04/10/25 Source: Developed by Drs. Sunny Handley, Daniella Burk, Buster Rajan and colleagues, with an educational sussy from [employer]. Review of Systems Const All systems reviewed & are unremarkable except as noted in HPI and below Card Denies chest pain at rest, Denies chest pain with activity, Denies edema, Denies irregular heart rhythm, Denies claudication, Denies dyspnea, Denies dyspnea on exertion, Denies orthopnea, Denies paroxysmal nocturnal dyspnea and Denies slow heart rate Resp Denies cough, Denies dyspnea and Denies dyspnea on exertion Physical exam (Primary Care) Vital Signs: Last Vital Signs Temp 97.3 F 08/14/25 16:41 Pulse 86 08/14/25 16:41 Resp 18 08/14/25 16:41 BP 140/64 H 08/14/25 16:41 Pulse Ox 95 08/14/25 16:41 Oxygen Delivery Method Room Air 08/14/25 16:41 BMI result Body Mass Index 32.4 BMI Assessment/Plan discussion: High BMI High, discussed plan: lifestyle, weight reduction, dietary and physical activity Tobacco/Smoking Status: Tobacco use Status Tobacco use date assessed 08/14/25 08/14/25 16:49 Patient Tobacco Use Status Never used Tobacco 08/14/25 16:49 Tobacco use type 05/25/22 09:59 e-Cigarette/Vaping Use Never Used 08/14/25 16:49 Thrive Assessment: Date of Thrive Assessment Date Thrive assessed 04/10/25 08/14/25 16:49 Currently or been in a relationship where the following occur: I choose not to answer Resp Effort & Inspection: normal respiratory effort Auscultation: clear to auscultation bilaterally Cardio Jugular venous distension: no JVD Rate: regular rate Rhythm: regular rhythm Heart sounds: S1 normal heart sound present and S2 normal heart sound present Extrem General: Yes full ROM Coding Level of Care Code Est Pt Level 4 (21394) Complex EM visit Add On G2211 Diagnoses Mild recurrent major depression F33.0 Anxiety F41.9 Essential hypertension I10 Dyslipidemia E78.5 Age-related osteoporosis without current pathological fracture M81.0 Presence of current pathological fracture: without current pathological fracture Right sided sciatica M54.31 Time Spent (min) 23 Assessment & Plan Assessment & Plan (1) Mild recurrent major depression: Code(s): F33.0 - Major depressive disorder, recurrent, mild Category: Medical (2) Anxiety: Code(s): F41.9 - Anxiety disorder, unspecified Category: Medical (3) Essential hypertension: Code(s): I10 - Essential (primary) hypertension Category: Medical (4) Dyslipidemia: Code(s): E78.5 - Hyperlipidemia, unspecified Category: Medical (5) Age related osteoporosis: Comment: DEXA 01/2022: AP Spine -2.6, Left femur neck -0.9, Left femur total 0.2 DEXA 01/2024: AP Spine -2.9, Left femur neck -0.8, Left femur total 0.3 Alendronate - did not tolerate, GI upset Reclast 09/2024 Code(s): M81.0 - Age-related osteoporosis without current pathological fracture Category: Medical Qualifiers: Presence of current pathological fracture: without current pathological fracture Qualified Code(s): M81.0 - Age-related osteoporosis without current pathological fracture (6) Right sided sciatica: Code(s): M54.31 - Sciatica, right side Category: Medical Plan Plan Patient was informed and verbally consented to the use of an ambient scribe for clinic note documentation during this visit. 1. Sciatica The patient reports right-sided sciatica with leg numbness and pain radiating from the back to the leg. Gabapentin was previously used for management but was discontinued due to adverse effects. A referral to pain management is planned for further evaluation and management. 2. Hypertension The patient's hypertension is managed with losartan 25 mg, and recent blood pressure readings have shown improvement. A follow-up appointment is scheduled in four months to monitor blood pressure control. 3. Hyperlipidemia The patient's hyperlipidemia is managed with ezetimibe, and recent laboratory results indicate well-controlled cholesterol levels. 4. Anxiety The patient is prescribed alprazolam for anxiety management. 5. Insomnia The patient is prescribed temazepam for insomnia management. Orders: Referrals Pain Management Referral M54.31 - Sciatica, right side Medications: New pregabalin 25 mg PO BEDTIME 30 caps 0RF 30 days fluocinolone acetonide oil 0.01% (DermOtic Oil) 5 drps otic (ear) left BID 20 mL 0RF 7 days Discontinued gabapentin Discontinued Reason: Patient Completed Course 300 mg PO BEDTIME 30 days 30 caps 0RF
--- OUTSIDE RECORDS SUMMARY | 2025-08-14 17:17 | XMS_ITS ---
Author Name Kiera Chase APRN Address [address] [place] [address] Phone [phone] [facility] Care Team Providers Care Activities Counselor Name Role Phone Kaitlin Chase Unavailable [phone] MICHELLE SAM Unavailable [phone] Reason for Referral Not Available Allergies, adverse reactions, alerts Allergen Type Reaction Severity Status Onset Date Atenolol Allergy to substance (disorder) Itching Unknown Active N/A Aspirin Allergy to substance (disorder) Itching Unknown Active N/A History of medication use Medication Class Instructions Start Date End Date Bwfacaaz-Pdyzgqtjf-Ejqizbsv 3.5-77746-6.1 Oint No Data Available 2022-04-08 2022-09-30 ALPRAZolam [...] List Problem Status Onset Date Resolved Date Synopsis Insomnia Active 2023-06-02 N/A RX: temazepamE stablish sleep routine and scheduleAvoid taking a nap during the day.Take medication as prescribedContinue to monitor Peripheral vascular disease, unspecified Active 2023-06-02 N/A RX: Ezetimi beContinue to monitorHeart healthy diet and daily activity obesity due to excess calories Active 2022-09-30 N/A Discussed diet a nd weight management. Increase physical activities as tolerated. Maintain safety and fall precautions. Heart healthy diet encouraged. Follow up with PCP as indicated.06/02/23: Stable. No changes. Continue to monitor. BMI 32.01 Recurrent mild major depressive disorder with anxiety Active 2022-09-30 N/A PHQ-9 score: 8. TARA-7 score: 12Managed with alprazolam and temazepam. Continue medications as directed. Maintain safety and fall precautions. Encourage relaxation and reassurance techniques. Follow up with PCP as indicated.06/02/23: Stable. No changes. Continue to monitor. Encounters Encounters Type Facility Date of Service Diagnosis/Co mplaint New patient,40-59min; chronic exacerbation, 2 stable chronic or 1 acute illness add add modifier 95 for video (do not use for phone, instead use 51660-90) [facility], ([place]) 09/[place]/2022 Major depressive disorder, recurrent, mildAnxiety disorder, unspecifiedMorbid (severe) obesity due to excess caloriesInsomnia due to other mental disorderBody mass index (bmi) 31.0-31.9, adult New patient,40-59min; chronic exacerbation, 2 stable chronic or 1 acute illness add add modifier 95 for video (do not use for phone, instead use 22588-35) [facility] ([place]) 09/[place]/2022 New patient,40-59min; chronic exacerbation, 2 stable chronic or 1 acute illness add add modifier 95 for video (do not use for phone, instead use 44651-55) [facility], ([place]) 09/30/2022 New patient,40-59min; chronic exacerbation, 2 stable chronic or 1 acute illness add add modifier 95 for video (do not use for phone, instead use 86457-48) [facility] ([place]) 09/30/20[place] New patient,40-59min; chronic exacerbation, 2 stable chronic or 1 acute illness add add modifier 95 for video (do not use for phone, instead use 17556-36) [facility] ([place] 09[place]/20[place] New patient,40-59min; chronic exacerbation, 2 stable chronic or 1 acute illness add add modifier 95 for video (do not use for phone, instead use 38899-09) [facility] ([place] 09[place]/20[place] New patient,40-59min; chronic exacerbation, 2 stable chronic or 1 acute illness add add modifier 95 for video (do not use for phone, instead use 25663-20) [facility] ([place] 09[place]20[place] New patient,40-59min; chronic exacerbation, 2 stable chronic or 1 acute illness add add modifier 95 for video (do not use for phone, instead use 63588-40) [facility] [place]20[place] New patient,40-59min; chronic exacerbation, 2 stable chronic or 1 acute illness add add modifier 95 for video (do not use for phone, instead use 82464-56) [facility] [place]20[place] No Data Available [facility] [place]2023 Peripheral vascular disease, unspecifiedMajor depressive disorder, recurrent, mildAnxiety disorder, unspecifiedInsomnia due to other mental disorderObesity, unspecifiedBody mass index (bmi) 32.0-32.9, adult No Data Available [facility]20[place] No Data Available [facility] No Data Available [facility] No Data Available [facility] [place] No Data Available [facility] [place] No Data Available [facility] No Data Available [facility] [place] No Data Available [facility] [place] No Data Available [facility] [place] No Data Available [facility] [place] Vital Signs Date of Collection [...] tive Time Current Smoking Status Never smoker 2025-07-18 0 Sex Female History of Procedures Procedures Service Procedure code Service date Servicing provider Phone# New patient,40-59min; chronic exacerbation, 2 stable chronic or 1 acute illness add add modifier 95 for video (do not use for phone, instead use 00672-95) 34045 2022-09-30 No Data Available No Data Availa [...] Available No Data Available No Data Available 36951 2023-06-02 No Data Available No Data Available Advance care planning discussed and documented advance care plan or surrogate decision-maker was [...] Status: Oriented t o Person, Place and Time , Recall 3/3 unrelated words at 3 minutes 2022-09-30 [...] modifier 95Continue to see PCP. Follow-up with [facility] as needed for any acute or disease [...] <80 (3078F)Advance care planning discussed and documented advance care plan or surrogate decision-maker was documented in the medical record. (1123F)Pain Assessment - NO pain documented (1126F)Phone (patient, parent, or guardian); 21-30 minutes of medical discussion (no modifier 95)Continue to see PCP. Follow-up with [facility] as needed for any acute or disease [...] your PCP. 2023-06-02 Discussed how to con tact [facility] via phone or tablet. 2023-06-02 Call if [...] an d Serious Illness ConversationDate of Conversation: 3Currently on Hospice NoLife Limiting Diagnosis: Diagnosis: Goals of Care: Curative: Attempt to sustain life by all medically effective meansCode Status: YES CPR: Attempt ResuscitationNutrition goals: No decision made about nutrition today; not discussedIf so, Who? Daughter - Elis Burgos you have a Durable Power of Academic Services Professional for Healthcare, or Healthcare Proxy Or Guardianship? Yes, preferred proxy but not named POADo you have a written Advance Directive? Has Advance DirectiveOther details of discussion: (Who was present, patients description of wishes/goals) 2023-06-02 Most recent hospital stay(s) or ER visit(s) and precipitating factors: 02/04 - Hosp - mass under arm 2023-06-02 Open HEDIS Measure r catherinew: yes
--- OUTSIDE RECORDS SUMMARY | 2025-08-14 17:18 | XMS_ITS | Clinical Summary ---
Author Organization [facility] Address [address] [place] [address] Care Team Providers Care Flight Attendant/Inflight Supervisor Name Role Phone Krys Watkins Primary Care Provider [phone] Allergies Active Allergy Reactions Criticality Noted Date [...] 78 06/04/2017 9:52 AM EDT Temperature 36.8 C (98.3 F) 12/14/2013 4:53 PM EST Respiratory Rate - - Oxygen Saturation - [...] Zoster Vaccines (2 of 2) 02/17/2022 12/23/2021 Alcohol/Substance Use Screening 11/15/2024 Health Care Proxy Review 11/15/2024 COVID-19 Vaccine (2024- season) 2025 10/06/2022, 11/06/2021, 02/05/2021 Influenza Vaccine (#1) 2025 , 08/18/2020, 10/19/2018, Additional history exists Hepatitis B Vaccines Aged Out No long er eligible based on patient's age to complete this topic Insurance [address] [id number] [facility] M[address] [facility] [place] [place] [id number] Care Teams Flight Attendant/Inflight Supervisor Relationship Specialty Start Date End Date Krys Watkins [address] [facility] [place] [address] PCP - General 06/03/17
== END 2025-08-14 17:05 | disposition home or self-care (01) ==
LOC: HO.HMCH 16:35
PROVIDERS: PCP Internal Medicine; Visit Provider Internal Medicine
DX: F33.0 Major depressive disorder, recurrent, mild (principal); F41.9 Anxiety disorder, unspecified; I10 Essential (primary) hypertension; E78.5 Hyperlipidemia, unspecified; M81.0 Age-related osteoporosis without current pathological fracture; M54.31 Sciatica, right side

== ENCOUNTER → 2025-08-14 16:34 | Outpatient (BNVA) | payer OTHER, SELFPAY | PROVIDERS: PCP Internal Medicine; Visit Provider Internal Medicine | DX: F33.0 Major depressive disorder, recurrent, mild (principal); F41.9 Anxiety disorder, unspecified; I10 Essential (primary) hypertension; E78.5 Hyperlipidemia, unspecified; M81.0 Age-related osteoporosis without current pathological fracture; M54.31 Sciatica, right side | CPT/HCPCS: 99212 ==

== ENCOUNTER → 2025-08-30 14:42 | Outpatient (BNVA) | payer OTHER, SELFPAY | PROVIDERS: PCP Internal Medicine | DX: Z01.30 Encounter for examination of blood pressure without abnormal findings (principal) | CPT/HCPCS: 99211 ==

== ENCOUNTER 2025-10-03 15:00 | Outpatient (AMB) | payer OTHER, SELFPAY ==
[2025-10-03 15:01] VITALS: BP 168/72; PULSE 87; RESP 16; O2SAT 95; BMI 32.2
--- NOTE | 2025-10-03 15:01 | A.OFFVIS_ITS ---
Vital Signs 10/03/25 15:01 Height 5 ft 3 in Weight 182 lb BMI 32.2 BP 168/72 H Blood Pressure Location Lt brachial Position Sitting Respiration 16 Pulse 87 Pulse Source Pulse Oximeter Pulse Oximetry (%) 95 Oxygen Delivery Method Room Air Intake Visit Reasons: Sciatica, right side Ramp Boss Required: No Ramp Boss Services: Ramp Boss Offered & Declined Accompanied by: Daughter Allergies aspirin (ASPIRIN) Allergy (Intermediate, Verified 10/03/25 15:06) SWELLING, rash atenolol Allergy (Intermediate, Verified 10/03/25 15:06) dermatitis duloxetine Allergy (Intermediate, Verified 10/03/25 15:06) dermatitis sulindac Allergy (Intermediate, Verified 10/03/25 15:06) dermatitis tizanidine Allergy (Intermediate, Verified 10/03/25 15:06) dizziness trazodone Allergy (Unknown, Verified 10/03/25 15:06) dermatitis Statins Support Allergy (Intermediate, Uncoded 08/14/25 16:50) dermatitis alendronate Adverse Reaction (Severe, Uncoded 08/14/25 16:50) abdominal pain, palpitations HPI Comments Details: Yasmine is very pleasant 80 years old female who presents in my office with complains on pain in lower back with radiation of the pain into bilateral lower extremities all the way down into the feet and radiating into the lateral toes bilaterally. She reports her pain today 08/24. She reports that the pain started more than 20 years ago. Because of her pain she can not sleep normally can not do activities of daily living she is able plus-minus to take care of herself but she is not able to take function normally. She was diagnose with osteoporosis by Rheumatology. She refused to receive treatment for osteoporosis because of the leg cramping she received from the treatment. She takes Tylenol for her pain. She had x-ray of the lumbar spine which demonstrated advanced arthritis. She had physical therapy 1 year ago she reported no help for physical therapy. She 10 years ago received injection in the lower back the nature of the injection is unknown to her. It was done at [facility] pain management. She does not remember the name of the provider. Past medical history significant for her hypertension osteoporosis and obesity. Past surgical history significant for eye surgeries. She denies smoking cigarettes denies drinking alcohol denies recreational drugs. She denies drinking soda. [facility] Medical History Mild recurrent major depression Palpitations PVD (peripheral vascular disease) Insomnia Autoimmune thyroiditis Dyslipidemia Anxiety Vitamin D deficiency Thyroid nodule Osteoporosis Depression HTN (hypertension) HLD (hyperlipidemia) Surgical History History of esophagogastroduodenoscopy (EGD) Hx of cornea transplant Hx of colonoscopy Hx of cataract surgery Family History Sister Osteoporosis Father No problems noted. Paternal Aunt Stroke Mother No problems noted. Social History Housing: Apartment Alcohol intake: never Patient Tobacco Use Status: Never used Tobacco e-Cigarette/Vaping Use: Never Used Second Hand Smoke Exposure: No service: No Current occupational status: disabled Cognitive needs: Yes Hearing needs: No Vision needs: Yes Review of Systems Const All systems reviewed & are unremarkable except as noted in HPI and below ENT Reports Normal hearing present Neuro Reports Normal hearing present, Denies Abnormal speech present, Denies confusion and Denies Sensory deficit (Neuro) Psych Denies confusion Physical Exam Const General: no acute distress; No confusion Nutritional Appearance: obese morbidly obese Orientation/consciousness: patient oriented x3 and No confusion Eyes General: appearance normal, both eyes and all related structures Pupils: Equal, round and reactive pupils present EOM: EOMs intact bilaterally Neck Neck: Yes full ROM Chest Chest palpation & inspection: normal inspection of the chest Resp Effort & Inspection: normal respiratory effort, able to speak in complete sentences, normal respiratory pattern, no audible wheezes and no cough Cardio Jugular venous distension: no JVD GI Inspection: Yes normal to inspection Back/Spine/Pelvis Other: Flexing forward and flexing backwards equally aggravates the patient's pain. SLR is negative bilaterally. Lasegue test is negative bilaterally. There is tenderness on palpation in projection of bilateral sacroiliac joints there is tenderness on palpation in the projection of the midline lumbar spine and para spinal lumbar region. Jair test is equivocal on the left and positive bilaterally. Gaenslen test is negative bilaterally. Pelvic distraction test is negative bilaterally. Patient reports numbness in bilateral lower extremities with prolonged standing. Patient reports pain increase with prolonged sitting. Neuro General: patient oriented x3, gait normal and No confusion Cranial nerves: Yes CN's II-XII intact bilaterally, Yes Equal, round and reactive pupils present, Yes Normal hearing present and Yes Ability to bilaterally elevate shoulders present Speech: No Abnormal speech present Gait exam (Neuro): Normal gait present Motor exam (neuro): 5/5 motor strength present throughout Sensory Exam: No Sensory deficit (Neuro) Extrem General: No pedal edema Psych Speech and movement: Normal speech and movement present Affect: normal affect Attitude: cooperative Thought process: Normal thought process present Thought content: Normal thought content present Insight: Good insight present (Psych) Judgement: Good judgement present (Psych) Assessment & Plan Assessment & Plan (1) Vertebrogenic low back pain: Code(s): M54.51 - Vertebrogenic low back pain Category: Medical (2) Spondylosis of lumbar region without myelopathy or radiculopathy: Code(s): M47.816 - Spondylosis without myelopathy or radiculopathy, lumbar region Category: Medical (3) Disc degeneration, lumbar: Code(s): M51.369 - Other intervertebral disc degeneration, lumbar region without mention of lumbar back pain or lower extremity pain Category: Medical (4) Radiculopathy, lumbar region: Code(s): M54.16 - Radiculopathy, lumbar region Category: Medical Plan My differential diagnosis for this patient would be between vertebra genic low back pain versus spondylosis of lumbar spine versus radiculopathy lumbar. I will schedule this patient for MRI of the lumbar spine. After the MRI I will see this patient in the office and we will decide on modality of treatment I can offer to the patient. Sacroiliitis and sacroiliac joint problem could be another source of the patient's pain however on physical exam it is not very prominent and x-ray of the pelvis does not demonstrate sacroiliitis. Orders: Orders MR lumbar spine wo con Today M47.816 - Spondylosis without myelopathy or radiculopathy, lumbar region, M51.369 - Other intervertebral disc degeneration, lumbar region without mention of lumbar back pain or lower extremity pain, M54.16 - Radiculopathy, lumbar region, M54.51 - Vertebrogenic low back pain Coding Level of Care Code New Pt Level 3 (52568) Diagnoses Vertebrogenic low back pain M54.51 Spondylosis of lumbar region without myelopathy or radiculopathy M47.816 Disc degeneration, lumbar M51.369 Radiculopathy, lumbar region M54.16
--- OUTSIDE RECORDS SUMMARY | 2025-10-04 03:35 | XMS_ITS ---
Author Name Kiera Chase APRN Address [address] [place] [address] Phone [phone] [facility] Care Team Providers Care Ocean Lifeguard Specialist Name Role Phone Kaitlin Chase Unavailable [phone] MICHELLE SAM Unavailable [phone] Reason for Referral Not Available Allergies, adverse reactions, alerts Allergen Type Reaction Severity Status Onset Date Atenolol Allergy to substance (disorder) Itching Unknown Active N/A Aspirin Allergy to substance (disorder) Itching Unknown Active N/A History of medication use Medication Class Instructions Start Date End Date Nckpxrzh-Rdsgztxtv-Jiuthvyo 3.5-79800-5.1 Oint No Data Available 2022-04-08 2022-09-30 ALPRAZolam [...] (do not use for phone, instead use 58655-93) [facility], ([place]) 09/30/2022 Major depressive disorder, recurrent, mildAnxiety disorder, unspecifiedMorbid (severe) obesity due to excess caloriesInsomnia due to other mental disorderBody mass index (bmi) 31.0-31.9, adult New patient,40-59min; chronic exacerbation, 2 stable chronic or 1 acute illness add add modifier 95 for video (do not use for phone, instead use 77579-47) [facility], ([place]) 09/30/2022 New patient,40-59min; chronic exacerbation, 2 stable chronic or 1 acute illness add add modifier 95 for video (do not use for phone, instead use 66441-53) [facility], ([place]) 09/30/2022 New patient,40-59min; chronic exacerbation, 2 stable chronic or 1 acute illness add add modifier 95 for video (do not use for phone, instead use 85658-88) [facility] ([place] 09/[place]/20[place] New patient,40-59min; chronic exacerbation, 2 stable chronic or 1 acute illness add add modifier 95 for video (do not use for phone, instead use 59994-18) [facility] [place] 09[place]/20[place] New patient,40-59min; chronic exacerbation, 2 stable chronic or 1 acute illness add add modifier 95 for video (do not use for phone, instead use 50228-33) [facility] [place] 09[place]/20[place] New patient,40-59min; chronic exacerbation, 2 stable chronic or 1 acute illness add add modifier 95 for video (do not use for phone, instead use 26154-12) [facility] [place] 09[place]/20[place] New patient,40-59min; chronic exacerbation, 2 stable chronic or 1 acute illness add add modifier 95 for video (do not use for phone, instead use 76812-56) [facility] [place]/20[place] New patient,40-59min; chronic exacerbation, 2 stable chronic or 1 acute illness add add modifier 95 for video (do not use for phone, instead use 40648-25) [facility] [place] No Data Available [facility] [place]2023 Peripheral vascular disease, unspecifiedMajor depressive disorder, recurrent, mildAnxiety disorder, unspecifiedInsomnia due to other mental disorderObesity, unspecifiedBody mass index (bmi) 32.0-32.9, adult No Data Available [facility] [place]2023 No Data Available [facility] [place] No Data Available [facility] [place] No Data Available [facility] [place] Data Available [facility] [place] No Data Available [facility] [place] No Data Available [facility] [place] [facility] [place] [facility] [place] [facility] [place] Vital Signs [...] tive Time Current Smoking Status Never smoker 2025-09-16 0 Sex Female History of Procedures Procedures Service Procedure code Service date Servicing provider Phone# New patient,40-59min; chronic exacerbation, 2 stable chronic or 1 acute illness add add modifier 95 for video (do not use for phone, instead use 54291-69) 17368 2022-09-30 No Data Available No Data Availa [...] Available No Data Available No Data Available [id number] 2023-06-02 No Data Available No Data Available [...] Burgos you have a Durable Power of Health Service Coordinator for Healthcare, or Healthcare Proxy Or Guardianship? [...]
--- OUTSIDE RECORDS SUMMARY | 2025-10-04 03:36 | XMS_ITS | Clinical Summary ---
Author Organization [facility] Address [address] [place] [address] Care Team Providers Care Night Time Babysitter Name Role Phone Krys Watkins Primary Care Provider [phone] Allergies Active Allergy Reactions Criticality Noted Date [...] Health Care Proxy Review 11/15/2024 Influenza Vaccine (#1) 2025 , 08/18/2020, 10/19/2018, Additional history exists COVID-19 Vaccine (2024- season) 2025 10/06/2022, 11/06/2021, 02/05/2021 Hepatitis B Vaccines Aged Out No long er eligible based on patient's age to complete this topic Insurance [address] [id number] [facility] MCR [facility] [place] [id number] Care Teams Night Time Babysitter Relationship Specialty Start Date End Date Krys Watkins [address] [place] [address] PCP - General 06/03/17
== END 2025-10-03 15:24 | disposition home or self-care (01) ==
PROVIDERS: PCP Internal Medicine; Visit Provider Anesthesiology
DX: M54.51 Vertebrogenic low back pain (principal); M47.816 Spondylosis without myelopathy or radiculopathy, lumbar region; M51.369 Other intervertebral disc degeneration, lumbar region without mention of lumbar back pain or lower extremity pain; M54.16 Radiculopathy, lumbar region
CPT/HCPCS: 99203

== ENCOUNTER → 2025-10-03 15:00 | Outpatient (BNVA) | payer OTHER, SELFPAY | PROVIDERS: PCP Internal Medicine; Visit Provider Anesthesiology | DX: M54.31 Sciatica, right side (principal); M54.51 Vertebrogenic low back pain; M47.816 Spondylosis without myelopathy or radiculopathy, lumbar region; M51.369 Other intervertebral disc degeneration, lumbar region without mention of lumbar back pain or lower extremity pain; M54.16 Radiculopathy, lumbar region | CPT/HCPCS: 99202 ==